=== PATIENT | male | born 1980 | race Caucasian/White ===

== ENCOUNTER 2023-02-06 06:33 | Outpatient (OUT) | payer BC, SELFPAY ==
[2023-02-06 07:42] LABS: Basophils Absolute Auto 0.1 10^3/uL (0.0-0.1); Eosinophils Absolute Auto 0.2 10^3/uL (0.0-0.7); Eosinophils Percent Auto 2.9 % (0.9-7.0); Hematocrit 43.9 % (42.0-54.0); Hemoglobin 15.2 g/dL (14.0-18.0); Immature Granulocytes Abs Auto 0.02 10^3/uL (0.00-0.03); Immature Granulocytes Pct Auto 0.3 % (0.0-0.5); Lymphocytes Absolute Auto 1.8 10^3/uL (1.2-3.8); Lymphocytes Percent Auto 26.6 % (20.5-60.0); Mean Corpuscular HGB Conc 34.6 g/dL (29.9-35.2); Mean Corpuscular Hemoglobin 32.6 pg (25.9-34.0); Mean Corpuscular Volume 94.2 fL (80.0-94.0); Mean Platelet Volume 9.2 fL (9.5-13.5); Monocytes Absolute Auto 0.6 10^3/uL (0.3-0.8); Monocytes Percent Auto 8.5 % (1.7-12.0); Neutrophils Absolute Auto 4.2 10^3/uL (1.4-6.5); Neutrophils Percent Auto 60.7 % (43.0-75.0); Platelet Count 217 10^3/uL (150-450); Red Blood Count 4.66 10^6/uL (4.70-6.10); Red Cell Distribution Width 12.8 % (11.0-15.0); White Blood Count 6.9 10^3/uL (4.0-11.0)
[2023-02-06 07:58] LABS: Estimated Average Glucose 103 mg/dL; Glycohemoglobin A1C 5.2 % (4.5-6.2)
[2023-02-06 08:11] LABS: Alanine Aminotransferase 37 U/L (16-63); Albumin Level 3.8 g/dL (3.4-5.0); Alkaline Phosphatase 73 U/L (46-116); Anion Gap 12.3; Aspartate Amino Transferase 18 U/L (15-37); BUN Creatinine Ratio 12.6; Bilirubin Total 0.4 mg/dL (0.2-1.0); Calcium 8.9 mg/dL (8.5-10.1); Carbon Dioxide 28.4 mmol/L (21.0-32.0); Chloride 100 mmol/L (98-107); Chol HDL Ratio 4.2; Cholesterol 139 mg/dL (<=200); Estimated GFR (African America >60 (>=60); Estimated GFR (Non-African Ame >60 (>=60); Free T3 2.67 pg/mL (2.18-3.98); Globulin 3.9 g/dL; Glucose 83 mg/dL (74-106); HDL Cholesterol 33 mg/dL (40-60); Potassium 3.7 mmol/L (3.5-5.1); Sodium 137 mmol/L (136-145); Thyroid Stimulating Hormone 1.111 uIU/mL (0.358-3.740); Total Protein 7.7 g/dL (6.4-8.2); Triglycerides 295 mg/dL (<=150); Uric Acid 6.7 mg/dL (3.5-7.2)
[2023-02-06 08:30] LABS: Prostate Specific Antigen Scrn 0.42 ng/mL (<=4.00)
== END 2023-02-06 06:34 | disposition home or self-care (01) ==
LOC: LAB 06:36
PROVIDERS: PCP Family Medicine; Visit Provider Family Medicine
DX: Z00.00 Encounter for general adult medical examination without abnormal findings (principal); Z12.5 Encounter for screening for malignant neoplasm of prostate
CPT/HCPCS: 36415; 80053; 80061; 83036; 83525; 84436; 84443; 84481; 84550; 85025; G0103

== ENCOUNTER 2024-02-15 14:03 | Outpatient (OUT) | payer BC, SELFPAY ==
[2024-02-15 14:51] LABS: Estimated Average Glucose 105 mg/dL; Glycohemoglobin A1C 5.3 % (4.5-6.2)
[2024-02-15 15:04] LABS: Alanine Aminotransferase 30 U/L (16-63); Albumin Globulin Ratio 0.9; Albumin Level 3.7 g/dL (3.4-5.0); Alkaline Phosphatase 77 U/L (46-116); Anion Gap 11.6; Aspartate Amino Transferase 20 U/L (15-37); Bilirubin Total 0.6 mg/dL (0.2-1.0); Calcium 8.9 mg/dL (8.5-10.1); Carbon Dioxide 29.2 mmol/L (21.0-32.0); Chloride 100 mmol/L (98-107); Cholesterol 128 mg/dL (<=200); Estimated GFR (African America >60 (>=60 mL/min/1.73m^2); Estimated GFR (Non-African Ame 56 (>=60 mL/min/1.73m^2); Free T3 2.61 pg/mL (2.18-3.98); Globulin 4.2 g/dL; Glucose 84 mg/dL (74-106); HDL Cholesterol 32 mg/dL (40-60); Potassium 3.8 mmol/L (3.5-5.1); Sodium 137 mmol/L (136-145); Thyroid Stimulating Hormone 1.085 uIU/mL (0.358-3.740); Total Protein 7.9 g/dL (6.4-8.2); Triglycerides 166 mg/dL (<=150); VLDL CHOLESTEROL 33.2 mg/dL
[2024-02-15 15:38] LABS: Basophils Absolute Auto 0.1 10^3/uL (0.0-0.1); Basophils Percent Auto 1.3 % (0.2-2.0); Eosinophils Absolute Auto 0.1 10^3/uL (0.0-0.7); Eosinophils Percent Auto 2.2 % (0.9-7.0); Hematocrit 44.7 % (42.0-54.0); Hemoglobin 15.3 g/dL (14.0-18.0); Immature Granulocytes Abs Auto 0.01 10^3/uL (0.00-0.03); Immature Granulocytes Pct Auto 0.2 % (0.0-0.5); Lymphocytes Absolute Auto 1.4 10^3/uL (1.2-3.8); Lymphocytes Percent Auto 24.9 % (20.5-60.0); Mean Corpuscular HGB Conc 34.2 g/dL (29.9-35.2); Mean Corpuscular Hemoglobin 32.4 pg (25.9-34.0); Mean Corpuscular Volume 94.7 fL (80.0-94.0); Mean Platelet Volume 9.3 fL (9.5-13.5); Monocytes Absolute Auto 0.6 10^3/uL (0.3-0.8); Monocytes Percent Auto 10.6 % (1.7-12.0); Neutrophils Absolute Auto 3.4 10^3/uL (1.4-6.5); Neutrophils Percent Auto 60.8 % (43.0-75.0); Platelet Count 203 10^3/uL (150-450); Red Blood Count 4.72 10^6/uL (4.70-6.10); Red Cell Distribution Width 12.3 % (11.0-15.0); White Blood Count 5.5 10^3/uL (4.0-11.0)
== END 2024-02-15 14:04 | disposition home or self-care (01) ==
LOC: LAB 14:08
PROVIDERS: PCP Family Medicine; Visit Provider Family Medicine
DX: Z00.00 Encounter for general adult medical examination without abnormal findings (principal); R53.83 Other fatigue; Z12.11 Encounter for screening for malignant neoplasm of colon
CPT/HCPCS: 36415; 80053; 80061; 83036; 84436; 84443; 84481; 85025; G0103

== ENCOUNTER 2025-02-19 13:53 | Outpatient (OUT) | payer BC, SELFPAY ==
--- OUTSIDE RECORDS SUMMARY | 2025-02-19 14:12 | XMS_ITS | CCD ---
Author Organization [facility] Care Team Providers Care Assembly Member Name Role Phone Elaine John Primary Care Provider ELAINE JOHN Primary Care Unavailable STEPHON DOMINGUEZ Attending Unavailable RODOLFO WARD Admitting Unavailable RODOLFO WARD Attending Unavailable STEPHON DOMINGUEZ Referring Unavailable ELAINE JOHN Primary Care Unavailable DR ELAINE JOHN Attending Unavailable GEMMA, DR HENRY Admitting Unavailable DR ELAINE JOHN Primary Care Unavailable DR ELAINE JOHN Consulting Unavailable DR ELAINE JOHN Attending Unavailable GEMMA, DR HENRY Admitting Unavailable DR ELAINE JOHN Primary Care Unavailable Medications Current Medications MedicationDrug Class(es)DatesSig (Normalized)Sig (Original)FLUoxetine 10 mg oral capsule (1 source)Serotonin Reuptake InhibitorStart: 28-14-5653vcyh 1 capsule by mouth once dailyFLUoxetine (PROZAC) 10 MG capsule Take 1 capsule by mouth daily 30 capsule 0 08/26/2019 ActiveStart: 96-16-0184vhzq 1 capsule by mouth once daily FLUoxetine (PROZAC) 10 MG capsule Take 1 capsule by mouth daily 30 capsule 0 08/26/2019 ActivehydrOXYzine hydrochloride 50 mg oral tablet (1 source)AntihistamineStart: 08-25-2019 End: 54-07-2072bjeh 1 tablet by mouth three times daily as needed for anxiety hydrOXYzine (ATARAX) 50 MG tablet Take 1 tablet by mouth 3 times daily as needed for Anxiety 45 tablet 0 08/25/2019 09/09/2019 Activemetoprolol tartrate 25 mg oral tablet (2 sources)beta-Adrenergic Blockertake 1 tablet by mouth twice dailymetoprolol tartrate (LOPRESSOR) 25 MG tablet Take 25 mg by mouth 2 times daily 0 Active Completed/Discontinued Medications MedicationDrug Class(es)DatesSig (Normalized)Sig (Original)LORazepam 1 mg oral tablet (1 source)BenzodiazepineStart: 08-17-2019 End: 62-43-1042UHBwccydl (ATIVAN) tablet 1 mg Problems Problem ClassificationProblemDateDocumented DateEpisodic/ChronicMood disorders (1 source)Severe recurrent major depression without psychotic features; Translations: [Severe episode of recurrent major depressive disorder, without psychotic features]Onset: [id number] screening for suspected conditions (not mental disorders or infectious disease) (1 source)Encounter for screening for malignant neoplasm of prostate; Translations: [ENC SCREEN MALIG NEOPLASM PROSTATE]Onset: 07-42-7963Ijbguise Suicide and intentional self-inflicted injury (2 sources)Suicidal thoughts; Translations: [Suicidal ideation]Episodic Results Test NameValueInterpretationReference RangeFacilityINSULINon 34-30-4089Sriwvwd 21.0 uIU/mLNormal2.6-24.9[facility] HospitalComment on above:Performed By: #### INSULIN #### [facility] [address] [place] [address] Dr. Cam Gómez AUTO DIFFon 47-73-0598KIHR #0.1 103/ulNormal0.0-0.1[facility] HospitalComment on above:Performed By: #### CBC #### [facility] [address] [place] [address] Dr. Cam Leessophils/100 WBC (Bld)1.0 %Normal0.2-2.0[facility] Comment on above:Performed By: #### CBC #### [facility] [address] [place] [address] Dr. Cam Ramírez #0.1 103/ulNormal0.0-0.7The [facility] SystemComment on above: Performed By: #### CBC #### [facility] [address] [place] [address] Dr. Cam Wilderosinophils/100 WBC (Bld)2.6 %Normal0.9-7.0[facility] Comment on above:Performed By: #### CBC #### [facility] [address] [place] [address] Dr. Yilan ChangErythrocyte distribution width (RBC) [Ratio]12.2 %Xviezp28.0-15.0 The [facility] SystemComment on above:Performed By: #### CBC #### [facility] [address] [place] [address] Dr. Cam KellerHematocrit (Bld) [Volume fraction]44.6 %Wynoic91.0-54.0The [facility] SystemComment on above:Performed By: #### CBC #### [facility] [address] [place] [address] Dr. Cam KellerHemoglobin (Bld) [Mass/Vol]14.9 g/zNHdhblc78.0-18.0The [facility] SystemComment on above:Performed By: #### CBC #### [facility] [address] [place] [address] Dr. Cam Hoover #0.01 10e3/ulNormal0.00-0.03The [facility] SystemComment on above:Performed By: #### CBC #### [facility] [address] [place] [address] Dr. Cam oHover %0.2 %Normal0.0-0.5The [facility] SystemComharper university hospital on above: Performed By: #### CBC #### [facility] [address] [place] [address] Dr. Cam SheldonH #1.4 103/ulNormal1.2-3.8The [facility] SystemComment on above:Performed By: #### CBC #### [facility] [address] [place] [address] Dr. Cam Rodriguezmphocytes/100 WBC (Bld)27.1 %Sjwgsn28.5-60.0The [facility] SystemComment on above:Performed By: #### CBC #### [facility] [address] [place] [address] Dr. Cam KingUAL DIFF REQNONormalThe [facility] SystemComment on above: Performed By: #### CBC #### [facility] [address] [place] [address] Dr. Cam Jones (RBC) [Entitic mass]30.9 ieGrfcfp70.9-34.0The [facility] SystemComment on above:Performed By: #### CBC #### [facility] [address] [place] [address] Dr. Cam Jones (RBC) [Mass/Vol]33.4 g/kAYyafzr88.9-35.2The [facility] SystemComment on above:Performed By: #### CBC #### [facility] [address] [place] [address] Dr. Cam Jones (RBC) [Entitic vol]92.5 lSAelssw85.0-94.0The [facility] SystemComment on above:Performed By: #### CBC #### [facility] [address] [place] [address] Dr. Cam Clifford #0.5 103/ulNormal0.3-0.8The [facility] SystemComment on above:Performed By: #### CBC #### [facility] [address] [place] [address] Dr. Cam Simpsonocytes/100 WBC (Bld)9.8 %Normal1.7-12.0[facility] Comment on above:Performed By: #### CBC #### [facility] [address] [place] [address] Dr. Cam RamírezUT #3.0 103/ulNormal1.4-6.5The [facility] SystemComment on above:Performed By: #### CBC #### [facility] [address] [place] [address] Dr. Cam Ramírezutrophils/100 WBC (Bld)59.3 %Duhhrf98.0-75.0The [facility] SystemComment on above:Performed By: #### CBC #### [facility] [address] [place] [address] Dr. Cam Villaseñorlet mean volume (Bld) [Entitic vol]8.9 fLCritically low 9.5-13.5The [facility] SystemComment on above:Performed By: #### CBC #### [facility] [address] [address] [address] Cam KellrePLT224 103/lhGzuagl162-615Ura [facility] on above: Performed By: #### CBC #### [facility] [address] [address] [address] Cam KellerRBC4.82 106/ulNormal4.70-6.10ThSelect Medical Specialty Hospital - [facility], IncComharper university hospital on above:Performed By: #### CBC #### [facility] [address] [address] [address] Cam KellerWBC5.0 103/ulNormal4.0-11.0The [facility] SystemComment on above: Performed By: #### CBC #### [facility] [address] [place] [address] Dr. Cam KellerFRALAN THYROXINE INDEX T7on 52-27-1496YWP6.35Wrjiro5.30-4.50[facility] HospitalComharper university hospital on above:Performed By: #### T7 #### [facility] [address] [place] [address] Dr. Cam KellerT3U33.0 %Sjcvls89.0-40.0[facility] on above: Performed By: #### T7 #### [facility] [address] [place] [address] Dr. Cam KellerT4 [Mass/Vol]6.20 ug/dLNormal4.50-12.10ThSelect Medical Specialty Hospital [facility], Inc Comment on above:Performed By: #### T7 #### [facility] [address] [place] [address] Dr. Cam KellerGLYCOHEMOGLOBIN A1Con 59-49-2263RBO RECOMMENDATIONSEE BELOWNormCleveland Clinic [facility] General Lodi HospitalComharper university hospital on above:Result Comment: ADA RECOMMENDED LIMIT 4.0 - 6.0 ADA THERAPEUTIC TARGET < 7.0 ACTION SUGGESTED > 7.0Performed By: #### A1C #### [facility] [address] [place] [address] Dr. Cam KellerGlucose [Mass/Vol]105 mg/[facility] on above:Performed By: #### A1C #### [facility] [address] [address] [address] Cam KellerHbA1c (Bld) [Mass fraction]5.3 %Normal4.5-6.2[facility] on above:Performed By: #### A1C #### [facility] [address] [place] [address] Dr. Cam KellerLIPID PROFILEon 34-30-1790IOZE-HDL RATIO NORMSEE [facility] on above:Result Comment: 3.3 - 4.4 LOW RISK 4.4 - 7.1 AVERAGE RISK 7.1 - 11.0 MODERATE RISK >11.0 HIGH RISKPerformed By: #### URIC, T4, CMP, TSH, LIPID #### [facility] [address] [place] [address] Dr. Cam Fonsecaesterol [Mass/Vol]247 mg/dLCritically high<=200The [facility] on above:Performed By: #### URIC, T4, CMP, TSH, LIPID #### [facility] [address] [place] [address] Dr. Cam Fonsecaesterol in HDL [Mass/Vol]32 mg/dLCritically hqu51-71Iru [facility] on above:Performed By: #### URIC, T4, CMP, TSH, LIPID #### [facility] [address] [place] [address] Dr. Cam Fonsecaesterol in LDL [Mass/Vol]142.2 mg/dLOhioHealth Dublin Methodist Hospital on above:Performed By: #### URIC, T4, CMP, TSH, LIPID #### [facility] [address] [place] [address] Dr. Cam Gonzalez.total/Cholesterol in HDL [Mass ratio]7.7 {ratio} NormalWayne Hospital on above:Performed By: #### URIC, T4, CMP, TSH, LIPID #### [facility] [address] [place] [address] Dr. Yilan ChangHDL NORMAL> or = 60 mg/dl - LOW CARDIOVASCULAR RISK <40 mg/dl - HIGH CARDIOVASCULAR RISKMcKitrick Hospitalment on above:Performed By: #### URIC, T4, CMP, TSH, LIPID #### [facility] [address] [place] [address] Dr. Cam Vang CALC NORMALSEE BELOWProtestant Deaconess HospitalComment on above:Result Comment: <100 mg/dl OPTIMAL 100 - 129 mg/dl NEAR OR ABOVE OPTIMAL 130 - 159 mg/dl BORDERLINE HIGH 160 - 189 mg/dl HIGH >190 mg/dl VERY HIGH Performed By: #### URIC, T4, CMP, TSH, LIPID #### [facility] [address] [place] [address] Dr. Cam KellerTriglyceride [Mass/Vol]364 mg/dLCritically high<=150The [facility] on above:Performed By: #### URIC, T4, CMP, TSH, LIPID #### [facility] [address] [place] [address] Dr. Cam KellerVLDL CALC72.8 mg/dLNoOur Lady of Mercy Hospital - AndersonComharper university hospital on above: Performed By: #### URIC, T4, CMP, TSH, LIPID #### [facility] [address] [place] [address] Dr. Cam Dietrich BLD IMMUNO SCREENon 36-51-4082IQDFHB BLOODNegativeNormal NEGATIVEThe [facility] on above:Performed By: #### A1C #### [facility] [address] [place] [address] Dr. Cam KellerPROF 14(COMP METB)on 46-60-4857Bpdtymp [Mass/Vol]3.8 g/dLNormal 3.4-5.0The [facility] on above:Performed By: #### URIC, T4, CMP, TSH, LIPID #### [facility] [address] [place] [address] Dr. Cam KellerAlbumin/Globulin [Mass ratio]0.9 {ratio}NormalThe [facility] SystemComharper university hospital on above:Performed By: #### URIC, T4, CMP, TSH, LIPID #### [facility] [address] [place] [address] Dr. Cam Hatfield [Catalytic activity/Vol]68 U/LIupoiz15-356Jir Highland District Hospitalment on above:Performed By: #### URIC, T4, CMP, TSH, LIPID #### [facility] [address] [place] [address] Dr. Cam Childers [Catalytic activity/Vol]37 U/VOxajrk21-17Ead [facility] SystemComment on above:Performed By: #### URIC, T4, CMP, TSH, LIPID #### [facility] [address] [place] [address] Dr. Cam Treviño gap [Moles/Vol]11.0 mmol/LNormalThe [facility] Comment on above:Performed By: #### URIC, T4, CMP, TSH, LIPID #### [facility] [address] [place] [address] Dr. Cam Freeman [Catalytic activity/Vol]21 U/OCxfryf91-18Gml [facility] SystemComment on above:Performed By: #### URIC, T4, CMP, TSH, LIPID #### [facility] [address] [place] [address] Dr. Cam KellerBilirubin [Mass/Vol]0.3 mg/dLNormal0.2-1.0[facility] Comment on above:Performed By: #### URIC, T4, CMP, TSH, LIPID #### [facility] [address] [place] [address] Dr. Cam KellerCalcium [Mass/Vol]9.2 mg/dLNormal8.5-10.1[facility] Comment on above:Performed By: #### URIC, T4, CMP, TSH, LIPID #### [facility] [address] [place] [address] Dr. Cam KellerChloride [Moles/Vol]101 mmol/PBhbcvv77-235VstMorrow County Hospital Comment on above:Performed By: #### URIC, T4, CMP, TSH, LIPID #### [facility] [address] [place] [address] Dr. Yilan ChangCO2 [Moles/Vol]28.5 mmol/RFwcxen38.0-32.0The [facility] Comment on above:Performed By: #### URIC, T4, CMP, TSH, LIPID #### [facility] [address] [address] [address] Cam KellerCreatinine [Mass/Vol]1.15 mg/dLNormal0.70-1.30The [facility] SystemComment on above:Performed By: #### URIC, T4, CMP, TSH, LIPID #### [facility] [address] [address] [address] Cam WilderGFR-AF MALDIVIAN>60Normal>=60The [facility] SystemComment on above:Performed By: #### URIC, T4, CMP, TSH, LIPID #### [facility] [address] [place] [address] Dr. Cam WilderGFR-NON AF MALDIVIAN>60Normal>=60The [facility] SystemComment on above:Performed By: #### URIC, T4, CMP, TSH, LIPID #### [facility] [address] [place] [address] Dr. Cam KellerGlobulin (S) [Mass/Vol]4.3 g/dLNormalThe [facility] SystemComment on above:Performed By: #### URIC, T4, CMP, TSH, LIPID #### [facility] [address] [place] [address] Dr. Cam KellerGlucose [Mass/Vol]91 mg/jIUcwhnt62-804Qvs [facility] Comment on above:Performed By: #### URIC, T4, CMP, TSH, LIPID #### [facility] [address] [place] [address] Dr. Cam KellerPotassium [Moles/Vol]4.5 mmol/LNormal3.5-5.1The [facility] Comment on above:Performed By: #### URIC, T4, CMP, TSH, LIPID #### [facility] [address] [place] [address] Dr. Cam KellerProtein [Mass/Vol]8.1 g/dLNormal6.4-8.2The [facility] Comment on above:Performed By: #### URIC, T4, CMP, TSH, LIPID #### [facility] [address] [place] [address] Dr. Cam Stringerdium [Moles/Vol]136 mmol/EOkllzi545-031Fam [facility] Comment on above:Performed By: #### URIC, T4, CMP, TSH, LIPID #### [facility] [address] [place] [address] Dr. Cam KellerUrea nitrogen [Mass/Vol]16.0 mg/dLNormal7.0-18.0The [facility] SystemComment on above:Performed By: #### URIC, T4, CMP, TSH, LIPID #### [facility] [address] [place] [address] Dr. Cam Garcia nitrogen/Creatinine [Mass ratio]13.9 mg/mgNormalThe [facility] SystemComment on above:Performed By: #### URIC, T4, CMP, TSH, LIPID #### [facility] [address] [place] [address] Dr. Cam KellerT4on 69-49-9238I1 [Mass/Vol]5.30 ug/dLNormal4.50-12.10The [facility] SystemComment on above:Performed By: #### URIC, T4, CMP, TSH, LIPID #### [facility] [address] [place] [address] Dr. Cam Lopez 29-22-7976NJK6.897 uIU/mLNormal0.358-3.740The [facility] SystemComment on above:Performed By: #### URIC, T4, CMP, TSH, LIPID #### [facility] [address] [place] [address] Dr. Cam Yun ACID SERUMon 05-44-3960Hckqa [Mass/Vol]5.2 mg/dLNormal 3.5-7.2The [facility] SystemComment on above:Performed By: #### URIC, T4, CMP, TSH, LIPID #### [facility] [address] [place] [address] Dr. Levy ChangEKG 12 Leadon 59-93-8493Ylhjvf Nehz81IFNVzhcg Health- [place], [place] Eftj11blgmrdvKyayo Health- [place], [place]-R Uqcupwtm632 msMercy Health- [place], KYQ-T Xsidwvwh574 msMercy Health- [place], KYQRS Wxbeqode40 msMercy Health- [place], KYQTc Calculation (Joanie)389 msMercy Health- [place], [place] Mulvane-3degreesMercy Health- [place], KYT Rvfb52njvfmaaFtsvf Health- [place], KYVentricular Dksx29VREPjruf Health- [place], [place] Normal sinus rhythm Normal ECG When compared with ECG of 22-JUN-2011 22:17, No significant change was found Confirmed by STANISLAV CHERRY ([id number]) on 08/18/2019 1:43:47 PMMercy Health- [place], KYEdi, Mhpn Incoming Ekg Results From [facility] [place] - 08/18/2019 1:43 PM EDT Normal sinus rhythm Normal ECG When compared with ECG of 22-JUN-2011 22:17, No significant change was found Confirmed by STANISLAV CHERRY ([id number]) on 08/18/2019 1:43:47 PMMer Health- [place], KYAcetaminophenon 19-56-1201Qfuoapmdbqpvs [Mass/Vol]<9Eyf33-37Kxjlo [facility]iffin HospitalComment on above:Performed By: #### ALCB, ACET #### [address] [place] [address] Accounts Manager: Jose L Gold [facility] with Diffon 71-64-4490Uky. Basophil0.05 k/uL Normal0.00-0.20MerUniversity Hospitals Samaritan Medical Center HospitalComment on above:Performed By: #### CDP, CP, SALI #### [address] [place] [address] Accounts Manager: Jose L Gold [facility].Imm.Granulocyte<0.96Orzkub7.00-0.30MerUniversity Hospitals Samaritan Medical Center HospitalComment on above:Performed By: #### CDP, CP, SALI #### [address] [place] [address] Accounts Manager: Paola Mcdermott.Neutrophil (Seg)3.56 k/uLNormal1.50-8.10[facility] HospitalComment on above:Performed By: #### CLEMENT MORGAN, SALI #### [address], [place] [address] Accounts Manager: Jose L Gold MDBasophils/100 WBC (Bld)1 %Normal0-2[facility] [place] HospitalComment on above:Performed By: #### CATHY CP, SALI #### [address] [place] [address] Accounts Manager: Jose L Gold MDEosinophils (Bld) [#/Vol]0.10 10*3/uLNormal 0.00-0.44[facility] HospitalComment on above:Performed By: #### CLEMENT MORGAN, SALI #### [address], [place] [address] Accounts Manager: QIANA Mcdermottosinophils/100 WBC (Bld)2 %Normal1-4[facility] HospitalComment on above:Performed By: #### CLEMENT MORGAN, SALI #### [address] [place] [address] Accounts Manager: Jose L Gold MDErythrocyte distribution width (RBC) [Ratio]12.3 %Heejcc23.8-14.4[facility] HospitalComment on above:Performed By: #### CATHY CP, SALI #### [address] [place] [address] Accounts Manager: Jose L Gold MDHematocrit (Bld) [Volume fraction]43.4 %Normal 40.7-50.3[facility] [place] HospitalComment on above:Performed By: #### CATHY CP, SALI #### [address], [place] [address] Accounts Manager: Jose L Gold MDHemoglobin (Bld) [Mass/Vol]14.9 g/dLNormal 13.0-17.0[facility] NorthComment on above:Performed By: #### CLEMENT MORGAN, SALI #### [address], [place] [id number] Accounts Manager: Jose L Gold MDImmature granulocytes (Bld) [#/Vol]0 %Normal0 [facility] NorthComment on above:Performed By: #### CLEMENT MORGAN, SALI #### [address] [place] [address] Accounts Manager: Anne-Marie Mcdermottmphocytes (Bld) [#/Vol]1.35 10*3/uLNormal 1.10-3.70[facility] NorthComment on above:Performed By: #### CLEMENT MORGAN, SALI #### [address], [facility]83 Accounts Manager: Anne-Marie Mcdermottmphocytes/100 WBC (Bld)23 %Dyw09-32KvorxSelect Medical Specialty Hospital - [facility] NorthComment on above:Performed By: #### CLEMENT MORGAN, SALI #### [address] [place] [address] Accounts Manager: ALEX Mcdermott (RBC) [Entitic mass]31.5 wpTkorhd97.2-33.5 [facility] HospitalComment on above:Performed By: #### CATHY CP, SALI #### [address] [place] [address] Accounts Manager: ALEX McdermottC (RBC) [Mass/Vol]34.3 g/mKOaykgl82.4-34.8 [facility] HospitalComment on above:Performed By: #### CATHY CP, SALI #### [address] [place] [address] Accounts Manager: BISI McdermottCV (RBC) [Entitic vol]91.8 hFYpmznq85.6-102.9 [facility] HospitalComment on above:Performed By: #### CLEMENT MORGAN, SALI #### [address], [facility] Accounts Manager: BISI Mcdermottonocytes (Bld) [#/Vol]0.71 10*3/uLNormal 0.10-1.20[facility] HospitalComment on above:Performed By: #### CATHY CP, SALI #### [address], [place] [address] Accounts Manager: BISI Mcdermottonocytes/100 WBC (Bld)12 %Normal3-12[facility] HospitalComment on above:Performed By: #### CLEMENT MORGAN, SALI #### [address], [place] [address] Accounts Manager: Birgit Mcdermottutrophil (Seg)62 %Lgzcen19-20[facility]iffin HospitalComment on above:Performed By: #### CLEMENT MORGAN, SALI #### [address], [place] [address] Accounts Manager: Jose L Gold MDNRBC Automated0.0 per 100 WBCNormal0.0[facility] HospitalComment on above:Performed By: #### CLEMENT MORGAN, SALI #### [address], [facility]83 Accounts Manager: THEE Mcdermottlatelet mean volume (Bld) [Entitic vol]8.9 fL Normal8.1-13.5MerUniversity Hospitals Samaritan Medical Center HospitalComment on above:Performed By: #### CATHY CP, SALI #### [address], [facility]87 [address] Accounts Manager: THEE Mcdermottlatelets (Bld) [#/Vol]197 10*3/oSOjlueu482-118 [facility] HospitalComment on above:Performed By: #### CDP, CP, SALI #### [facility] [address] [place] [address] Accounts Manager: MARTHA Mcdermott (Bld) [#/Vol]4.73 10*6/uLNormal4.21-5.77[facility] HospitalComment on above:Performed By: #### CDP, CP, SALI #### [address] [place] [address] Accounts Manager: PRO Mcdermott (Bld) [#/Vol]5.8 10*3/uLNormal3.5-11.3MOhioHealth Doctors Hospital HospitalComment on above:Performed By: #### CATHY, CP, SALI #### [address] [place] [address] Accounts Manager: James Mcdermott PerformedNOT REPORTEDNormalSelect Medical Specialty Hospital - [facility] NorthComment on above:Performed By: #### CATHY, CP, SALI #### [address] [place] [address] Accounts Manager: Tricia Mcdermott (Bld) [#/Vol]NOT REPORTEDCleveland Clinic [facility]- [place], KYComment on above:Performed By: #### CDP, CP, SALI #### [address] [place] [address] Accounts Manager: MARTHA Mcdermott morphology finding Nom (Bld)NOT REPORTEDCleveland Clinic [facility]- [place], KYComment on above:Performed By: #### CDP, CP, SALI #### [address] [place] [address] Accounts Manager: PRO Mcdermott MorphologyNOT REPORTEDCleveland Clinic [facility]- [place], [place] Comment on above:Performed By: #### CDP, CP, SALI #### [address], [place] [id number] Accounts Manager: YOMAIRA Mcdermottlone peak hospital Metabolic Profon 08-17-2019(cont.)Normal [facility] NorthComment on above:Result Comment: Average GFR for 40-49 years old: 99 mL/min/1.73sq m Chronic Kidney Disease: <60 mL/min/1.73sq m Kidney failure: <15 mL/min/1.73sq m eGFR calculated using average adult body mass. Additional eGFR calculator available at: http://www.[employer]/multiple_crcl_2012.htmPerformed By: #### CLEMENT MORGAN, SALI #### [address], [place] [id number] Accounts Manager: Jose L Gold MDAlbumin [Mass/Vol]4.3 g/dLNormal3.5-5.2MOhioHealth Doctors Hospital HospitalComment on above:Performed By: #### CLEMENT MORGAN, SALI #### [address] [place] [address] Accounts Manager: Jose L Gold MDAlbumin/Globulin [Mass ratio]1.3 {ratio}Normal 1.0-2.5[facility] NorthComment on above:Performed By: #### CLEMENT MORGAN, SALI #### [address] [place] [address] Accounts Manager: Patricia Mcdermottline Phos54 U/MAxucdt60-433OttapSelect Medical Specialty Hospital - Cincinnati NorthComment on above:Performed By: #### CLEMENT MORGAN, SALI #### [address], [place] 0[address]83 Accounts Manager: Jose L Gold MDALT [Catalytic activity/Vol]15 U/LNormal5-41[facility] NorthComment on above:Performed By: #### CLEMENT MORGAN, SALI #### [address], [facility]21 [phone] Accounts Manager: Jose L Gold MDAnion gap [Moles/Vol]13 mmol/LNormal9-17[facility] HospitalComment on above:Performed By: #### CLEMENT MORGAN, SALI #### [address] [place] [address] Accounts Manager: Jose L Gold MDAST [Catalytic activity/Vol]18 U/LNormal<40MerUniversity Hospitals Samaritan Medical Center HospitalComment on above:Performed By: #### CATHY CP, SALI #### [facility] [address], [facility]83 Accounts Manager: Jose L Gold MDBilirubin Ql (U)0.27 mg/dLLow0.3-1.2[facility] Newton HospitalComment on above:Performed By: #### CLEMENT MORGAN, SALI #### [address], [place] [address] Accounts Manager: Jose L Gold MDBUN/CRE Mozki27Ezpnyk4-63Ogajc [facility] Comment on above:Performed By: #### CLEMENT MORGAN, SALI #### [address] [place] [address] Accounts Manager: Jose L Gold MDCalcium [Mass/Vol]9.8 mg/dLNormal8.6-10.4[facility] NorthComment on above:Performed By: #### CLEMENT MORGAN, SALI #### [address] [place] [address] Accounts Manager: Jose L Gold, MDChloride [Moles/Vol]99 mmol/KGqwxal68-909Yyhez [facility]iffin HospitalComment on above:Performed By: #### CLEMENT MORGAN, SALI #### [address] [place] [address] Accounts Manager: Jose L Gold MDCO2 [Moles/Vol]25 mmol/ORumsah09-32Qthmw [facility] HospitalComment on above:Performed By: #### CATHY CP, SALI #### [address], [place] 2075183 Accounts Manager: YOMAIRA Mcdermottreatinine [Mass/Vol]1.16 mg/dLNormal0.70-1.20 [facility] HospitalComment on above:Performed By: #### CATHY CP, SALI #### [address], [place] 7238283 Accounts Manager: Jose L Gold MDGFR, Amer>60Normal>60[facility] Comment on above:Performed By: #### CLEMENT MORGAN, SALI #### [address], [place] 377[address]83 Accounts Manager: JAMIE Mcdermott,non Amer>60Normal>60[facility] Newton HospitalComment on above:Performed By: #### CLEMENT MORGAN, SALI #### [address] [place] [address] Accounts Manager: Jose L Gold MDGlucose [Mass/Vol]109 mg/tVRhna53-10Ioqpe Newton HospitalComment on above:Performed By: #### CATHY CP, SALI #### [address], [place] 6124783 Accounts Manager: THEE Mcdermottotassium [Moles/Vol]4.1 mmol/LNormal3.7-5.3[facility] Newton HospitalComment on above:Performed By: #### CATHY CP, SALI #### [address], [place] 2695183 Accounts Manager: Jose L Gold MDProtein [Mass/Vol]7.6 g/dLNormal6.4-8.3[facility] Newton HospitalComment on above:Performed By: #### CATHY CP, SALI #### [address], [place] [address] Accounts Manager: AIXA Mcdermottodium [Moles/Vol]137 mmol/FEawrbx429-485Akkmu [facility] HospitalComment on above:Performed By: #### CLEMENT MORGAN, SALI #### [facility] [address], [facility]83 Accounts Manager: AIXA Mcdermotttaging:NormalTrihealth HospitalComment on above:Result Comment: Stage 1: Some kidney damage normal GFR Stage 2: Mild kidney damage GFR 60-89 Stage 3: Moderate kidney damage GFR 30-59 Stage 4: Severe kidney damage GFR 15-29 Stage 5: Severe kidney damage GFR <15 ESRD - chronic treatment by dialysis or transplantPerformed By: #### CLEMENT MORGAN, SALI #### [address], [facility]83 Accounts Manager: Jose L Gold MDUrea nitrogen [Mass/Vol]17 mg/dLNormal6-20[facility] HospitalComment on above:Performed By: #### CLEMENT MORGAN, SALI #### [facility] [address], [facility]83 Accounts Manager: ANGEL Mcdermottrugon 67-84-2633Doxgayy [Mass/Vol]mg/dL<10 mg/dL [facility]- [place], KYDrug Scr, Abuse, Uron 63-51-8959Jghugwpxinl(s),UrNegative NormalNEGTrihealth HospitalComment on above:Performed By: #### MAKENZIE #### [facility] [address], [facility]83 Accounts Manager: Jose L Gold MDBarbiturate(s),UrNegativeNormalNEGTrihealth HospitalComment on above:Performed By: #### MAKENZIE #### [facility] [address] [place] [phone] Accounts Manager: Jose L Gold MDBase excess Calc (Bld) [Moles/Vol]NegativeNormal NEGTrihealth HospitalComment on above:Performed By: #### MAKENZIE #### [address], [facility]83 Accounts Manager: Jose L Gold MDBenzodiazepine(s)NegativeNormalNEGMercy Newton HospitalComment on above:Performed By: #### MAKENZIE #### [address], [facility]83 Accounts Manager: Jose L Gold MDBuprenorphrine, UrNegativeNormalNEGMercy Newton HospitalComment on above:Performed By: #### MAKENZIE #### [address], [facility]83 Accounts Manager: YOMAIRA Mcdermottannabinoid(s),UrNegativeNormalNEGMercy Newton HospitalComment on above:Performed By: #### MAKENZIE #### [address], [facility]83 Accounts Manager: BISI Mcdermottethadone Ql (U)NegativeNormalNEGMercy Newton HospitalComment on above:Performed By: #### MAKENZIE #### [address], [facility]83 Accounts Manager: BISI Mcdermottethamphetamine, UrNegativeNormalNEGMercy Newton HospitalComment on above:Performed By: #### MAKENZIE #### [address], [facility]83 Accounts Manager: Jose L Gold MDOpiate(s), UrNegativeNormalNEGMercy Newton HospitalComment on above:Performed By: #### MAKENZIE #### [address], [facility]83 Accounts Manager: Jose L Gold MDOxycodone, UrineNegativeNormalNEGMercy Newton HospitalComment on above:Performed By: #### MAKENZIE #### [facility] [address] [place] [address], [place] 2561583 Accounts Manager: THEE Mcdermotthencyclidine, UrNegativeNormalNEGMercy Newton HospitalComment on above:Performed By: #### MAKENZIE #### [address], [place] 78[address]83 Accounts Manager: THEE Mcdermottropoxyphene,UrineNegativeNormalNEGMercy Newton HospitalComment on above:Performed By: #### MAKENZIE #### [address], [place] 2773883 Accounts Manager: Jose L Gold MDTricyclic antidepressants Screen Ql (U)Negative NormalNEGSelect Medical Specialty Hospital - Cincinnati NorthComharper university hospital on above:Result Comment: Drug screen results are to be used for medical purposes only. All positive results are unconfirmed. Testing for employment or legal uses should be sent to a reference laboratory for confirmation.Performed By: #### MAKENZIE #### [address], [place] 2424583 Accounts Manager: Jose L Gold MDInterpretive InfoNOT REPORTEDNormalMercy The Hospital Of Central ConnecticutComment on above:Performed By: #### MAKENZIE #### [address], [place] 4537783 Accounts Manager: Jose L Gold MDMDMA, UrineNOT REPORTEDNormalNEGRegency Hospital Toledocy Newton HospitalComment on above:Performed By: #### MAKENZIE #### [address], [place] 9278683 Accounts Manager: Jose L Gold MDEthanol Alcoholon 14-04-3998Zjoysyk [Mass/Vol] mg/dLNormal<10Mer[facility] Newton HospitalComment on above:Performed By: #### ALCB, ACET #### [address], [place] 3505383 Accounts Manager: Jose L Gold MDEthanol percent<0.010Normal<0.010Mer[facility] Newton HospitalComment on above:Performed By: #### ALCB, ACET #### [facility] [address] [place] [address] Accounts Manager: Jose L Gold MDHematologyon 89-60-8305Ivgwyfzot (Bld) [#/Vol] 0.05 10*3/uLUniversity [facility]als [facility] [place], KYBasophils/100 WBC (Bld)1 %0 - 2 %[facility], KYEosinophils (Bld) [#/Vol]0.10 10*3/[facility] [place], KYEosinophils/100 WBC (Bld)2 %1 - 4 %[facility] [place], KYHematocrit (Bld) [Volume fraction]43.4 % 40.7 - 50.3 %[facility], KYHemoglobin (Bld) [Mass/Vol]14.9 g/dL13 - 17 g/dLHolzer Hospital, KYLymphocytes (Bld) [#/Vol]1.35 10*3/[facility] [place], KYLymphocytes/100 WBC (Bld)23 %Low24 - 43 %[facility], KYMCH (RBC) [Entitic mass]31.5 pg25.2 - 33.5 pgHolzer Hospital, KYMCV (RBC) [Entitic vol] 91.8 fL82.6 - 102.9 fLHolzer Hospital, KYMonocytes (Bld) [#/Vol]0.71 10*3/uL [facility], KYMonocytes/100 WBC (Bld)12 %3 - 12 %[facility], [place] Platelets (Bld) [#/Vol]197 10*3/[facility], KYRBC (Bld) [#/Vol]4.73 10*6/uL4.21 - 5.77 m/[facility], KYWBC (Bld) [#/Vol]5.8 10*3/[facility] [place], KYWBC (Bld) [#/Vol]0.0 10*3/uL0.0 per 100 WBCHolzer Hospital, [place] Metabolic Panelon 29-83-5167Brupwkb [Mass/Vol]4.3 g/dL3.5 - 5.2 g/dLHolzer Hospital, KYALP [Catalytic activity/Vol]54 U/L40 - 129 U/[facility], [place] ALT [Catalytic activity/Vol]15 U/L5 - 41 U/[facility], KYAnion gap [Moles/Vol]13 mmol/L9 - 17 mmol/[facility], KYAST [Catalytic activity/Vol]18 U/L<40[facility], KYCalcium [Mass/Vol]9.8 mg/dL8.6 - 10.4 mg/dLHolzer Hospital, KYChloride [Moles/Vol]99 mmol/L98 - 107 mmol/[facility], KYCO2 [Moles/Vol]25 mmol/L20 - 31 mmol/[facility], [place] Creatinine [Mass/Vol]1.16 mg/dL0.7 - 1.2 mg/dLHolzer Hospital, KYGFR/1.73 sq M predicted among non-blacks MDRD (S/P/Bld) [Vol rate/Area][facility], [place] Comment on above:Stage 1: Some kidney damage normal GFR Stage 2: Mild kidney damage GFR 60-89 Stage 3: Moderate kidney damage GFR 30-59 Stage 4: Severe kidney damage GFR 15-29 Stage 5: Severe kidney damage GFR <15 ESRD - chronic treatment by dialysis or transplant Average GFR for 40-49 years old: 99 mL/min/1.73sq m Chronic Kidney Disease: <60 mL/min/1.73sq m Kidney failure: <15 mL/min/1.73sq m eGFR calculated using average adult body mass. Additional eGFR calculator available at: http://www.[employer]/multiple_crcl_2012.htm Glucose [Mass/Vol]109 mg/fXFfke43 - 99 mg/dLHolzer Hospital, AKPotassium [Moles/Vol]4.1 mmol/L3.7 - 5.3 mmol/[facility], KYProtein [Mass/Vol]7.6 g/dL6.4 - 8.3 g/dLMercy Health- [place], KYSodium [Moles/Vol]137 mmol/L135 - 144 mmol/LMercy Health- [place], KYUrea nitrogen [Mass/Vol]17 mg/dL6 - 20 mg/dLMercy Health- [place], KYOtheron 26-54-2884Tigqiqgajnx Screen, UrNegativeNEGATIVEMercy Health- [place], KYBarbiturate Screen, UrNegativeNEGATIVEMercy Health- [place], [place] Benzodiazepine Screen, UrineNegativeNEGATIVEMercy Health- [place], KYBuprenorphine UrineNegativeNEGATIVEMercy Health- [place], KYCannabinoid Scrn, UrNegativeNEGATIVE [facility]- [place], KYCocaine Metabolite, UrineNegativeNEGATIVEMercy Health- [place], KYMDMA, UrineNOT REPORTEDNEGATIVEMercy Health- [place], KYMethadone Screen, Urine NegativeNEGATIVEMercy Health- [place], KYMethamphetamine, UrineNegativeNEGATIVEMercy Health- [place], KYOpiates, UrineNegativeNEGATIVEMercy Health- [place], KYOxycodone Screen, UrNegativeNEGATIVEMercy Health- [place], KYPhencyclidine, UrineNegative NEGATIVEMercy Health- [place], KYPropoxyphene, UrineNegativeNEGATIVEMercy Health- [place], KYTest InformationNOT REPORTEDMercy Health- [place], KYTricyclic Antidepressants, UrineNegativeNEGATIVEMercy Health- [place], KYComment on above:Drug screen results are to be used for medical purposes only. All positive results are unconfirmed. Testing for employment or legal uses should be sent to a reference laboratory for confirmation. Acetaminophen [Mass/Vol]<5Low10 - 30 ug/mLMercy Health- [place], KYInterpretation and review of laboratory resultsAbnormalMercy Health- [place], KYAlbumin/Globulin [Mass ratio]1.3 {ratio}[facility]- [place], KYBilirubin Ql (U)0.27 mg/dLLow0.3 - 1.2 mg/dLMercy Health- [place], KYBun/Cre Cjccf45Vfomt Health- [place], KYGFR >60>60 mL/minMercy Health- [place], KYGFR Non->60>60 mL/minMercy Health- [place], KYInterpretation and review of laboratory resultsAbnormalMercy Health- [place], KYSalicylate Lvl<1Low3 - 10 mg/dLCleveland Clinic [facility]- [place], KYEthanol percent <0.010<0.010 %[facility], KYDifferential TypeNOT REPORTEDUniversity Hospitals [facility] [place], KYErythrocyte distribution width (RBC) [Ratio]12.3 %11.8 - 14.4 %[facility] [place], KYImmature granulocytes (Bld) [#/Vol]0 %0[facility]- [place], KYImmature granulocytes (Bld) [#/Vol]10*3/uLUniversity Hospitals [facility] [place], KYInterpretation and review of laboratory resultsAbnormalUniversity Hospitals [facility]ma [facility] [place], KYMCHC (RBC) [Mass/Vol]34.3 g/dL 28.4 - 34.8 g/dLUniversity Hospitals Parma [facility] Center [place], KYPlatelet mean volume (Bld) [Entitic vol]8.9 fL8.1 - 13.5 fLHolzer Hospital, KYSegmented neutrophils/100 WBC (Bld)62 %36 - 65 %[facility], KYSegs Absolute3.56[facility] [place], KYSalicylateon 87-94-2567Cgkmcupicq<9Fcv7-33CdejdSelect Medical Specialty Hospital - Cincinnati NorthComment on above:Performed By: #### CATHY, CP, SALI #### [facility] [address] [place] [address] Accounts Manager: Jose L Gold MD Vital Signs Date TimeVital SignValuePerforming ClxjlhnttYmrgnmah31-84-6658 08:29-0400BP Kmbavowia09 mm[Hg][facility], RV81-69-8989 08:29-0400BP Dkjejqld934 mm[Hg][facility], LZ12-78-4039 08:29-0400Pulse (Heart Rate)71 /minDouglbee [facility], JJ41-02-6765 08:00-0400Body Xtelfqpvukv80.2 [degF][facility], DL07-29-2360 08:00-0400Pulse Plpyyhcs62 %[facility], YX67-36-9453 08:00-0400Respiratory Rate 16 /minDouglbee [facility], BA56-99-7542 02:13-0400BMI (Body Mass Index) 35.96 kg/n1Gidusxv [facility], HC95-19-7851 02:13-0400Body xwxuqy488.45 kgDoKettering Health Main Campus, PU95-56-9346 02:13-9500Fkcbkm789.3 cmDougmartin John [facility], FW39-45-0087 21:03-0400BMI (Body Mass Index)34.44 kg/m2Syed [facility], NC76-41-5130 21:03-0400Body wvohuv934.[address] [facility], NQ71-92-2335 21:03-0400BP Igdkivwmb24 mm[Hg][facility], BG38-55-0762 21:03-0400BP Inkfsqis007 mm[Hg][facility], DP69-75-7599 21:03-7139Sbjrsk237.8 cmSyed [facility], YA13-06-6476 21:03-0400Pulse (Heart Rate)81 /minSyed [facility], [place] 08-17-2019 21:03-0400Pulse Muqkroth62 %[facility], [place] 08-17-2019 21:03-0400Respiratory Rate16 /minSyed [facility], [place] 08-17-2019 17:30-0400Body Wnwkxqcmhdn67.29 [degF][facility], [place] Encounters Encounter DateEncounter TypeCare ProviderFacilityStart: 69-57-3476nhfnmyvuruUG ELAINE JOHNFacility:J8Kjxbt: 40-97-0673Ecliaibyf for general adult medical examination without abnormal findingsDR ELAINE EdouardSouthview Medical Centertart: 01-24-2022 End: 13-90-8255wnhggiaizzJE ELAINE Johnsoncility:Y4Uobaq: 01-24-2022 End: 33-29-0488Mhxjocyht for general adult medical examination without abnormal findingsDR ELAINE Johnsoncility:F7Znsjn: 51-63-2853Gbhyrwg encounter procedure Elaine Dhruv [facility] KYStart: 08-18-2019 End: 64-11-6975Ndlwoyeyzn and management of inpatientIRFAN Mitchveronika [facility] Centertart: 08-17-2019 End: 18-65-0067Qzibgxlwl department patient visitDOUGMARTIN Casiano [facility] Connecticuttart: 08-17-2019 End: 12-08-5162Jtrbwgzef department patient visitSyed Gregg Dominguez Work Phone: [facility] EDComment on above:Suicidal ideation (Primary Dx)Start: 45-39-4818Qgtoudx encounter procedureDojerrod ErendiraLEEANNA Admitting Procedures DateProcedureProcedure DetailPerforming ClinicianStart: 18-99-8633GBF screening DR ELAINE JULIENomment on above:Performed By: #### PSASC #### [facility] [address] [place] [address] Dr. Levy ChangStart: 98-18-6344CSXFLNLZQ PATIENTIRFAN AHMEDStart: 08-19-2019 PATIENT MONITORING CLOSE Q 15 MINUTESIRFAN AHMEDStart: 85-34-4745KLRISJO COMMUNICATIONIRFAN AHMEDStart: 32-92-4579TQCE GENERALIRFAN AHMEDStart: 59-73-2872DWNI CODEIRFAN AHMEDStart: 39-06-0159MYTLPGIVKMGU AHMEDStart: 69-80-9964AJQZATH COMMUNICATIONIRFAN AHMEDStart: 58-79-1223IIWCQTZ STATUS (FROM ED OR OR/PROCEDURAL)IRFAN AHMEDStart: 19-03-3537MQVRS SIGNSIRFAN AHMEDStart: 45-65-0863Inse screen class list aDOUGLAS HOYStart: 34-14-5747Pwv routine ecg w/least 12 lds w/i&rDOUGLAS HOYStart: 44-19-2524TXVYLEC PRECAUTIONSDOUGLAS GEMMA Start: 47-34-1667Gdko screen class list aEdelon Schroeder Work Phone: Start: 15-60-1302Anb routine ecg w/least 12 lds i&r onlyEtan E Eitches Work Phone: Start: 56-69-6822Cfo routine ecg w/least 12 lds w/i&r Jovan E Eitches Work Phone: Start: 64-94-8688LBT REPORTHpf ScanningStart: 58-25-5659Tswve of acetaminophenEtan E Eitches Work Phone: Start: 33-83-4071Hmmtt of ethanolEtan E Eitches Work Phone: Start: 37-15-2186Bwqzj of salicylateEtan E Eitches Work Phone: Start: 77-07-2706Xefga count complete auto&auto difrntl wbcEtan E Eitches Work Phone: Start: 87-49-5153Phumintfvsiop metabolic panelEtan E Alexandre Work Phone: Plan of Treatment DateCare ActivityDetailAuthorStart: 18-56-7635Afpnewnza vaccinationFlu vaccine (Season Ended)[facility] 12 LeadEKG 12 Lead ECG STAT 08/17/2019 6:23 PM [place] [facility] DatePayer CategoryPayerPolicy [id number] [facility] [place] PPO xxxxxxxxxxxx 2014-Present [address] [place], [place] [address]uiotkaacdpvt .[id number] [id number] .[id number] .[id number] .[id number] [id number]s-[id number] [id number] Social History DateTypeDetailFacilityStart: 02-35-2484Fhuiemi smoking status NHISCurrent every day smokerHolzer Hospital, AKHistory of tobacco useCigarette SmokerHolzer Hospital, AKSex Assigned At BirthNot on fileHolzer Hospital, AKExposure to SARS-CoV-2 (event)Unable to assessHolzer Hospital, KYStart: 72-17-4241Cvsruqk smoking status NHISFormer smokerHolzer Hospital, AKStart: 26-99-6143Omsnfjc intakeCurrent drinker of alcohol (finding)[facility], AKStart: 08-18-2019 Alcohol Commentnightly for past 2 weeksHolzer Hospital, [place] Assessments Diagnosis Suicidal ideation Advance Directives No Advanced Directives Records FoundDocuments on File TypeDate RecordedPatient RepresentativeExplanationAdvance Directives and Living WillPower of AttorneyTypeDate RecordedPatient RepresentativeExplanationAdvance Directives and Living WillPower of AttorneyCode StatusDate ActivatedDate InactivatedCommentsFull Code08/18/2019 1:56 AM Summary Purpose Family History No Family History Records Found Medical HistoryRelationNameCommentsHigh Blood PressureFatherArrhythmiaMother RelationNameStatusCommentsFatherMother Additional Source Comments (unrecognized sect ion and content) No Status Records FoundNo Status Records FoundNo Status Records Found INFORMATION SOURCE (unrecogn ized section and content) DATE CREATED AUTHOR 08/17/2019 [facility] DATE CREATED AUTHOR AUTHOR'S ORGANIZ ATION 09/07/2019 [facility] DATE CREATED AUTHOR AUTHOR'S ORGANIZ ATION 02/17/2022 [facility] FOR RECORDS PERTAINING TO PATIENTS WHO ARE OR HAVE BEEN ENROLLED IN A CHEMICAL DEPENDENCY/SUBSTANCEABUSE PROGRAM, SOME INFORMATION MAY BE OMITTED. This clinical summary was aggregated from multiple sources. Caution should be exercised in using it in the provision of clinical care. This summary normalizes information from multiple sources, and as a consequence, information in this document may materially change the coding, format and clinical context of patient data. In addition, data may be omitted in some cases. CLINICAL DECISIONS SHOULD BE BASED ON THE PRIMARY CLINICAL RECORDS. [facility] [employer] [facility]. provides no warranty or guarantee of the accuracy or completeness of information in this document.
[2025-02-19 14:30] LABS: Hematocrit 40.1 % (42.0-54.0); Hemoglobin 13.8 g/dL (14.0-18.0); Immature Granulocytes Abs Auto 0.02 10^3/uL (0.00-0.03); Immature Granulocytes Pct Auto 0.4 % (0.0-0.5); Lymphocytes Absolute Auto 1.3 10^3/uL (1.2-3.8); Mean Corpuscular HGB Conc 34.4 g/dL (29.9-35.2); Mean Corpuscular Hemoglobin 31.8 pg (25.9-34.0); Mean Corpuscular Volume 92.4 fL (80.0-94.0); Platelet Count 220 10^3/uL (150-450); Red Blood Count 4.34 10^6/uL (4.70-6.10); White Blood Count 5.5 10^3/uL (4.0-11.0)
[2025-02-19 15:13] LABS: Alanine Aminotransferase 38 U/L (16-63); Albumin Globulin Ratio 1.0; Albumin Level 3.9 g/dL (3.4-5.0); Alkaline Phosphatase 82 U/L (46-116); Anion Gap 12.9; Aspartate Amino Transferase 33 U/L (15-37); Blood Urea Nitrogen 12.0 mg/dL (7.0-18.0); Calcium 9.0 mg/dL (8.5-10.1); Carbon Dioxide 28.2 mmol/L (21.0-32.0); Chloride 99 mmol/L (98-107); Cholesterol 159 mg/dL (<=200); Estimated GFR (African America >60 (>=60 mL/min/1.73m^2); Estimated GFR (Non-African Ame >60 (>=60 mL/min/1.73m^2); Free T3 2.37 pg/mL (2.18-3.98); Globulin 3.9 g/dL; Glucose 80 mg/dL (74-106); HDL Cholesterol 25 mg/dL (40-60); Potassium 4.1 mmol/L (3.5-5.1); Sodium 136 mmol/L (136-145); Thyroid Stimulating Hormone 0.846 uIU/mL (0.358-3.740); Total Protein 7.8 g/dL (6.4-8.2); Triglycerides 337 mg/dL (<=150); VLDL CHOLESTEROL 67.4 mg/dL
== END 2025-02-19 13:54 | disposition home or self-care (01) ==
PROVIDERS: PCP Family Medicine; Visit Provider Family Medicine
DX: Z00.00 Encounter for general adult medical examination without abnormal findings (principal); Z12.5 Encounter for screening for malignant neoplasm of prostate
CPT/HCPCS: 36415; 80053; 80061; 83036; 83525; 84403; 84436; 84443; 84481; 85025; G0103

== ENCOUNTER 2025-02-23 15:52 | Outpatient (OUT) | payer BC, SELFPAY ==
--- OUTSIDE RECORDS SUMMARY | 2025-02-23 16:21 | XMS_ITS | CCD ---
Author Organization [facility] Care Team Providers Care Doctor Of Chiropractic Name Role Phone Elaine John Primary Care [...] mg oral capsule (1 source)Serotonin Reuptake InhibitorStart: 89-39-4134wgzj 1 capsule by mouth once dailyFLUoxetine (PROZAC) 10 MG capsule Take 1 capsule by mouth daily 30 capsule 0 08/26/2019 ActiveStart: 81-92-0990dbcl 1 capsule by mouth once daily FLUoxetine (PROZAC) 10 MG capsule Take 1 capsule by mouth daily 30 capsule 0 08/26/2019 ActivehydrOXYzine hydrochloride 50 mg oral tablet (1 source)AntihistamineStart: 08-25-2019 End: 62-08-4587phpu 1 tablet by mouth three times daily [...] mg oral tablet (1 source)BenzodiazepineStart: 08-17-2019 End: 71-04-3476EKFcguijc (ATIVAN) tablet 1 mg Problems Problem ClassificationProblemDateDocumented DateEpisodic/ChronicMood disorders (1 source)Severe recurrent major depression without psychotic features; Translations: [Severe episode of recurrent major depressive disorder, without psychotic features]Onset: [id number] screening for suspected conditions (not mental disorders or infectious disease) (1 source)Encounter for screening for malignant neoplasm of prostate; Translations: [ENC SCREEN MALIG NEOPLASM PROSTATE]Onset: 15-61-9704Fgsshzll Suicide and intentional self-inflicted injury (2 sources)Suicidal thoughts; Translations: [Suicidal ideation]Episodic Results Test NameValueInterpretationReference RangeFacilityINSULINon 18-34-6102Qsojrax 21.0 uIU/mLNormal2.6-24.9[facility] HospitalComment on above:Performed By: #### INSULIN #### [facility] [address] [place] [address] Dr. Cam Gómez AUTO DIFFon 11-06-2975WDRI #0.1 103/ulNormal0.0-0.1[facility] HospitalComment on above:Performed By: #### CBC #### [facility] [address] [place] [address] Dr. Cam Leessophils/100 WBC (Bld)1.0 %Normal0.2-2.0[facility] Comment on above:Performed By: #### CBC #### [facility] [address] [place] [address] Dr. Cam Ramírez #0.1 103/ulNormal0.0-0.7The [facility] CenterComment on above: Performed By: #### CBC #### [facility] [address] [place] [address] Dr. Cam Wilderosinophils/100 WBC (Bld)2.6 %Normal0.9-7.0[facility] Comment on above:Performed By: #### CBC #### [facility] [address] [place] [address] Dr. Yilan ChangErythrocyte distribution width (RBC) [Ratio]12.2 %Ruqkit64.0-15.0 The [facility] CenterComment on above:Performed By: #### CBC #### [facility] [address] [place] [address] Dr. Cam KellerHematocrit (Bld) [Volume fraction]44.6 %Burqtf55.0-54.0The [facility] CenterComment on above:Performed By: #### CBC #### [facility] [address] [place] [address] Dr. Cam KellerHemoglobin (Bld) [Mass/Vol]14.9 g/tAHaarfc14.0-18.0The [facility] CenterComment on above:Performed By: #### CBC #### [facility] [address] [place] [address] Dr. Cam Hoover #0.01 10e3/ulNormal0.00-0.03The [facility] CenterComment on above:Performed By: #### CBC #### [facility] [address] [place] [address] Dr. Cam Hoover %0.2 %Normal0.0-0.5The [facility] CenterCommunson healthcare [facility] on above: Performed By: #### CBC #### [facility] [address] [place] [address] Dr. Cam SheldonH #1.4 103/ulNormal1.2-3.8The [facility] CenterComment on above:Performed By: #### CBC #### [facility] [address] [place] [address] Dr. Cam Rodriguezmphocytes/100 WBC (Bld)27.1 %Pkxbhs04.5-60.0The [facility] CenterComment on above:Performed By: #### CBC #### [facility] [address] [place] [address] Dr. Cam KingUAL DIFF REQNONormalThe [facility] CenterComment on above: Performed By: #### CBC #### [facility] [address] [place] [address] Dr. Cam Jones (RBC) [Entitic mass]30.9 gyOqwbvl34.9-34.0The [facility] CenterComment on above:Performed By: #### CBC #### [facility] [address] [place] [address] Dr. Cam Jones (RBC) [Mass/Vol]33.4 g/gHQnxzuv78.9-35.2The [facility] CenterComment on above:Performed By: #### CBC #### [facility] [address] [place] [address] Dr. Cam Jones (RBC) [Entitic vol]92.5 pNOkrnpz23.0-94.0The [facility] CenterComment on above:Performed By: #### CBC #### [facility] [address] [place] [address] Dr. Cam Clifford #0.5 103/ulNormal0.3-0.8The [facility] CenterComment on above:Performed By: #### CBC #### [facility] [address] [place] [address] Dr. Cam Simpsonocytes/100 WBC (Bld)9.8 %Normal1.7-12.0The [facility] Comment on above:Performed By: #### CBC #### [facility] [address] [place] [address] Dr. Cam RamírezUT #3.0 103/ulNormal1.4-6.5The [facility] CenterComment on above:Performed By: #### CBC #### [facility] [address] [place] [address] Dr. Cam Ramírezutrophils/100 WBC (Bld)59.3 %Vtoqtx70.0-75.0The [facility] CenterComment on above:Performed By: #### CBC #### [facility] [address] [place] [address] Dr. Cam Villaseñorlet mean volume (Bld) [Entitic vol]8.9 fLCritically low 9.5-13.5The [facility] CenterComment on above:Performed By: #### CBC #### [facility] [address] [address] [address] Cam KellerPLT224 103/deVmcgzv664-160Ulc [facility] on above: Performed By: #### CBC #### [facility] [address] [address] [address] Cam KellerRBC4.82 106/ulNormal4.70-6.10ThGuernsey Memorial HospitalCommunson healthcare grayling hospital on above:Performed By: #### CBC #### [facility] [address] [address] [address] Cam KellerWBC5.0 103/ulNormal4.0-11.0The [facility] CenterComment on above: Performed By: #### CBC #### [facility] [address] [place] [address] Dr. Cam KellerFRALAN THYROXINE INDEX T7on 01-65-7388QKL0.54Gmkjlj4.30-4.50[facility] HospitalCommunson healthcare gray[facility] hospital on above:Performed By: #### T7 #### [facility] [address] [place] [address] Dr. Cam KellerT3U33.0 %Yqxivw05.0-40.0[facility] on above: Performed By: #### T7 #### [facility] [address] [place] [address] Dr. Cam KellerT4 [Mass/Vol]6.20 ug/dLNormal4.50-12.10ThGuernsey Memorial Hospital Comment on above:Performed By: #### T7 #### [facility] [address] [place] [address] Dr. Cam KellerGLYCOHEMOGLOBIN A1Con 49-16-8580HFM RECOMMENDATIONSEE BELOWNormRegency Hospital Cleveland EastCommunson healthcare grayling hospital on above:Result Comment: ADA RECOMMENDED LIMIT 4.0 - 6.0 ADA THERAPEUTIC TARGET < 7.0 ACTION SUGGESTED > 7.0Performed By: #### A1C #### [facility] [address] [place] [address] Dr. Cam KellerGlucose [Mass/Vol]105 mg/[facility] on above:Performed By: #### A1C #### [facility] [address] [address] [address] Cam KellerHbA1c (Bld) [Mass fraction]5.3 %Normal4.5-6.2[facility] on above:Performed By: #### A1C #### [facility] [address] [place] [address] Dr. Cam KellerLIPID PROFILEon 90-49-6219SAPB-HDL RATIO NORMSEE [facility] on above:Result Comment: 3.3 - 4.4 LOW RISK 4.4 - 7.1 AVERAGE RISK 7.1 - 11.0 MODERATE RISK >11.0 HIGH RISKPerformed By: #### URIC, T4, CMP, TSH, LIPID #### [facility] [address] [place] [address] Dr. Cam Fonsecaesterol [Mass/Vol]247 mg/dLCritically high<=200The [facility] on above:Performed By: #### URIC, T4, CMP, TSH, LIPID #### [facility] [address] [place] [address] Dr. Cam Fonsecaesterol in HDL [Mass/Vol]32 mg/dLCritically xir80-05Udf [facility] on above:Performed By: #### URIC, T4, CMP, TSH, LIPID #### [facility] [address] [place] [address] Dr. Cam Fonsecaesterol in LDL [Mass/Vol]142.2 mg/dLPremier Health Upper Valley Medical Center on above:Performed By: #### URIC, T4, CMP, TSH, LIPID #### [facility] [address] [place] [address] Dr. Cam Gonzalez.total/Cholesterol in HDL [Mass ratio]7.7 {ratio} NormalOhio State University [facility] on above:Performed By: #### URIC, T4, CMP, TSH, LIPID #### [facility] [address] [place] [address] Dr. Yilan ChangHDL NORMAL> or = 60 mg/dl - LOW CARDIOVASCULAR RISK <40 mg/dl - HIGH CARDIOVASCULAR RISKSuburban Community Hospital & Brentwood Hospitalment on above:Performed By: #### URIC, T4, CMP, TSH, LIPID #### [facility] [address] [place] [address] Dr. Cam Vang CALC NORMALSEE BELOWMercy HospitalComment on above:Result Comment: <100 mg/dl OPTIMAL 100 - 129 mg/dl NEAR OR ABOVE OPTIMAL 130 - 159 mg/dl BORDERLINE HIGH 160 - 189 mg/dl HIGH >190 mg/dl VERY HIGH Performed By: #### URIC, T4, CMP, TSH, LIPID #### [facility] [address] [place] [address] Dr. Cam KellerTriglyceride [Mass/Vol]364 mg/dLCritically high<=150The [facility] on above:Performed By: #### URIC, T4, CMP, TSH, LIPID #### [facility] [address] [place] [address] Dr. Cam KellerVLDL CALC72.8 mg/dLNoMercy Health St. Vincent Medical CenterCommunson healthcare [facility]ling hospital on above: Performed By: #### URIC, T4, CMP, TSH, LIPID #### [facility] [address] [place] [address] Dr. Cam Dietrich BLD IMMUNO SCREENon 43-02-5290QTPNZJ BLOODNegativeNormal NEGATIVEThe [facility] on above:Performed By: #### A1C #### [facility] [address] [place] [address] Dr. Cam KellerPROF 14(COMP METB)on 00-64-0402Aoiraxa [Mass/Vol]3.8 g/dLNormal 3.4-5.0The [facility] on above:Performed By: #### URIC, T4, CMP, TSH, LIPID #### [facility] [address] [place] [address] Dr. Cam KellerAlbumin/Globulin [Mass ratio]0.9 {ratio}NormalThe [facility] CenterCommunson healthcare grayling hospital on above:Performed By: #### URIC, T4, CMP, TSH, LIPID #### [facility] [address] [place] [address] Dr. Cam Hatfield [Catalytic activity/Vol]68 U/FMpdspk40-044Wcz [facility]ment on above:Performed By: #### URIC, T4, CMP, TSH, LIPID #### [facility] [address] [place] [address] Dr. Cam Childers [Catalytic activity/Vol]37 U/HUpfzom76-52Cif [facility] CenterComment on above:Performed By: #### URIC, T4, CMP, TSH, LIPID #### [facility] [address] [place] [address] Dr. Cam Treviño gap [Moles/Vol]11.0 mmol/LNormalThe [facility] Comment on above:Performed By: #### URIC, T4, CMP, TSH, LIPID #### [facility] [address] [place] [address] Dr. Cam Freeman [Catalytic activity/Vol]21 U/RSoplpc20-53Epf [facility] CenterComment on above:Performed By: #### URIC, T4, CMP, TSH, LIPID #### [facility] [address] [place] [address] Dr. Cam KellerBilirubin [Mass/Vol]0.3 mg/dLNormal0.2-1.0[facility] Comment on above:Performed By: #### URIC, T4, CMP, TSH, LIPID #### [facility] [address] [place] [address] Dr. Cam KellerCalcium [Mass/Vol]9.2 mg/dLNormal8.5-10.1[facility] Comment on above:Performed By: #### URIC, T4, CMP, TSH, LIPID #### [facility] [address] [place] [address] Dr. Cam KellerChloride [Moles/Vol]101 mmol/YVyigrs19-038UkqCleveland Clinic Avon Hospital Comment on above:Performed By: #### URIC, T4, CMP, TSH, LIPID #### [facility] [address] [place] [address] Dr. Yilan ChangCO2 [Moles/Vol]28.5 mmol/DSdwpqt60.0-32.0The [facility] Comment on above:Performed By: #### URIC, T4, CMP, TSH, LIPID #### [facility] [address] [address] [address] Cam KellerCreatinine [Mass/Vol]1.15 mg/dLNormal0.70-1.30The [facility] CenterComment on above:Performed By: #### URIC, T4, CMP, TSH, LIPID #### [facility] [address] [address] [address] Cam WilderGFR-AF AZERBAIJANI>60Normal>=60The [facility] CenterComment on above:Performed By: #### URIC, T4, CMP, TSH, LIPID #### [facility] [address] [place] [address] Dr. Cam WilderGFR-NON AF AZERBAIJANI>60Normal>=60The [facility] CenterComment on above:Performed By: #### URIC, T4, CMP, TSH, LIPID #### [facility] [address] [place] [address] Dr. Cam KellerGlobulin (S) [Mass/Vol]4.3 g/dLNormalThe [facility] CenterComment on above:Performed By: #### URIC, T4, CMP, TSH, LIPID #### [facility] [address] [place] [address] Dr. Cam KellerGlucose [Mass/Vol]91 mg/tCNosmhf95-460Urj [facility] Comment on above:Performed By: #### URIC, T4, CMP, TSH, LIPID #### [facility] [address] [place] [address] Dr. Cam KellerPotassium [Moles/Vol]4.5 mmol/LNormal3.5-5.1The [facility] Comment on above:Performed By: #### URIC, T4, CMP, TSH, LIPID #### [facility] [address] [place] [address] Dr. Cam KellerProtein [Mass/Vol]8.1 g/dLNormal6.4-8.2The [facility] Comment on above:Performed By: #### URIC, T4, CMP, TSH, LIPID #### [facility] [address] [place] [address] Dr. Cam Stringerdium [Moles/Vol]136 mmol/NJgycqk954-790Yts [facility] Comment on above:Performed By: #### URIC, T4, CMP, TSH, LIPID #### [facility] [address] [place] [address] Dr. Cam KellerUrea nitrogen [Mass/Vol]16.0 mg/dLNormal7.0-18.0The [facility] CenterComment on above:Performed By: #### URIC, T4, CMP, TSH, LIPID #### [facility] [address] [place] [address] Dr. Cam Garcia nitrogen/Creatinine [Mass ratio]13.9 mg/mgNormalThe [facility] CenterComment on above:Performed By: #### URIC, T4, CMP, TSH, LIPID #### [facility] [address] [place] [address] Dr. Cam KellerT4on 32-83-8009P2 [Mass/Vol]5.30 ug/dLNormal4.50-12.10The [facility] CenterComment on above:Performed By: #### URIC, T4, CMP, TSH, LIPID #### [facility] [address] [place] [address] Dr. Cam Lopez 75-53-3350JTH5.897 uIU/mLNormal0.358-3.740The [facility] CenterComment on above:Performed By: #### URIC, T4, CMP, TSH, LIPID #### [facility] [address] [place] [address] Dr. Cam Yun ACID SERUMon 75-41-0559Pyziq [Mass/Vol]5.2 mg/dLNormal 3.5-7.2The [facility] CenterComment on above:Performed By: #### URIC, T4, CMP, TSH, LIPID #### [facility] [address] [place] [address] Dr. Levy ChangEKG 12 Leadon 65-56-0026Gvzfvg Uqsv41GLWDlpoy Health- [place], [place] Vtll63kjuezpzXpkeb Health- [place], [place]-R Sziagyqf439 msMercy Health- [place], KYQ-T Oshhqxgw378 msMercy Health- [place], KYQRS Tmmeolgj50 msMercy Health- [place], KYQTc Calculation (Joanie)389 msMercy Health- [place], KYR [place]-3degreesMercy Health- [place], KYT Csgx49kaxtuzhNayzf Health- [place], KYVentricular Tgsb96JNFOufnq Health- [place], [place] Normal sinus rhythm Normal ECG When compared with ECG of 22-JUN-2011 22:17, No significant change was found Confirmed by STANISLAV CHERRY ([id number]) on 08/18/2019 1:43:47 PMMercy Health- [place], KYEdi, Mhpn Incoming Ekg Results From [facility] [place], [place] - 08/18/2019 1:43 PM EDT Normal sinus rhythm Normal ECG When compared with ECG of 22-JUN-2011 22:17, No significant change was found Confirmed by STANISLAV CHERRY ([id number]) on 08/18/2019 1:43:47 PMMer Health- [place], KYAcetaminophenon 12-11-0056Arvepdkiqaouv [Mass/Vol]<8Uku08-54Ymmab [facility]iffin HospitalComment on above:Performed By: #### ALCB, ACET #### [address] [place] [address] Manufacturing Engineer Supervisor: Jose L Gold [facility] with Diffon 78-82-1891Oxp. Basophil0.05 k/uL Normal0.00-0.20MerKettering Health Preble HospitalComment on above:Performed By: #### CDP, CP, SALI #### [address] [place] [address] Manufacturing Engineer Supervisor: Jose L Gold [facility].Imm.Granulocyte<0.86Qyjvte6.00-0.30MerKettering Health Preble HospitalComment on above:Performed By: #### CDP, CP, SALI #### [address] [place] [address] Manufacturing Engineer Supervisor: Paola Mcdermott.Neutrophil (Seg)3.56 k/uLNormal1.50-8.10[facility] HospitalComment on above:Performed By: #### CLEMENT MORGAN, SALI #### [address], [place] [address] Manufacturing Engineer Supervisor: Jose L Gold MDBasophils/100 WBC (Bld)1 %Normal0-2[facility] [place] HospitalComment on above:Performed By: #### CATHY CP, SALI #### [address] [place] [address] Manufacturing Engineer Supervisor: Jose L Gold MDEosinophils (Bld) [#/Vol]0.10 10*3/uLNormal 0.00-0.44[facility] HospitalComment on above:Performed By: #### CLEMENT MORGAN, SALI #### [address], [place] [address] Manufacturing Engineer Supervisor: QIANA Mcdermottosinophils/100 WBC (Bld)2 %Normal1-4[facility] HospitalComment on above:Performed By: #### CLEMENT MORGAN, SALI #### [address] [place] [address] Manufacturing Engineer Supervisor: Jose L Gold MDErythrocyte distribution width (RBC) [Ratio]12.3 %Fuluca86.8-14.4[facility] HospitalComment on above:Performed By: #### CATHY CP, SALI #### [address] [place] [address] Manufacturing Engineer Supervisor: Jose L Gold MDHematocrit (Bld) [Volume fraction]43.4 %Normal 40.7-50.3[facility] [place] HospitalComment on above:Performed By: #### CATHY CP, SALI #### [address], [place] [address] Manufacturing Engineer Supervisor: Jose L Gold MDHemoglobin (Bld) [Mass/Vol]14.9 g/dLNormal 13.0-17.0[facility] Hospital LimaComment on above:Performed By: #### CLEMENT MORGAN, SALI #### [address], [place] [id number] Manufacturing Engineer Supervisor: Jose L Gold MDImmature granulocytes (Bld) [#/Vol]0 %Normal0 [facility] Hospital LimaComment on above:Performed By: #### CLEMENT MORGAN, SALI #### [address] [place] [address] Manufacturing Engineer Supervisor: Anne-Marie Mcdermottmphocytes (Bld) [#/Vol]1.35 10*3/uLNormal 1.10-3.70[facility] Hospital LimaComment on above:Performed By: #### CLEMENT MORGAN, SALI #### [address], [facility]83 Manufacturing Engineer Supervisor: Anne-Marie Mcdermottmphocytes/100 WBC (Bld)23 %Tzb04-28IlcyoScci Hospital LimaComment on above:Performed By: #### CLEMENT MORGAN, SALI #### [address] [place] [address] Manufacturing Engineer Supervisor: ALEX Mcdermott (RBC) [Entitic mass]31.5 qsIcecid30.2-33.5 [facility] HospitalComment on above:Performed By: #### CATHY CP, SALI #### [address] [place] [address] Manufacturing Engineer Supervisor: ALEX McdermottC (RBC) [Mass/Vol]34.3 g/yWJpgevh42.4-34.8 [facility] HospitalComment on above:Performed By: #### CATHY CP, SALI #### [address] [place] [address] Manufacturing Engineer Supervisor: BISI McdermottCV (RBC) [Entitic vol]91.8 fPErhyeu27.6-102.9 [facility] HospitalComment on above:Performed By: #### CLEMENT MORGAN, SALI #### [address], [facility]83 Manufacturing Engineer Supervisor: BISI Mcdermottonocytes (Bld) [#/Vol]0.71 10*3/uLNormal 0.10-1.20[facility] HospitalComment on above:Performed By: #### CATHY CP, SALI #### [address], [place] [address] Manufacturing Engineer Supervisor: BISI Mcdermottonocytes/100 WBC (Bld)12 %Normal3-12[facility] HospitalComment on above:Performed By: #### CLEMENT MORGAN, SALI #### [address], [place] [address] Manufacturing Engineer Supervisor: Birgit Mcdermottutrophil (Seg)62 %Nfvkfz64-86Mbhfb [facility]iffin HospitalComment on above:Performed By: #### CLEMENT MORGAN, SALI #### [address], [place] [address] Manufacturing Engineer Supervisor: Jose L Gold MDNRBC Automated0.0 per 100 WBCNormal0.0[facility] HospitalComment on above:Performed By: #### CLEMENT MORGAN, SALI #### [address], [facility]83 Manufacturing Engineer Supervisor: THEE Mcdermottlatelet mean volume (Bld) [Entitic vol]8.9 fL Normal8.1-13.5MerKettering Health Preble HospitalComment on above:Performed By: #### CATHY CP, SALI #### [address], [facility]25 [address] Manufacturing Engineer Supervisor: THEE Mcdermottlatelets (Bld) [#/Vol]197 10*3/jYXnzzec304-456 [facility] HospitalComment on above:Performed By: #### CDP, CP, SALI #### [facility] [address] [place] [address] Manufacturing Engineer Supervisor: MARTHA Mcdermott (Bld) [#/Vol]4.73 10*6/uLNormal4.21-5.77[facility] HospitalComment on above:Performed By: #### CDP, CP, SALI #### [address] [place] [address] Manufacturing Engineer Supervisor: PRO Mcdermott (Bld) [#/Vol]5.8 10*3/uLNormal3.5-11.3MSelect Medical [facility] HospitalComment on above:Performed By: #### CATHY, CP, SALI #### [address] [place] [address] Manufacturing Engineer Supervisor: James Mcdermott PerformedNOT REPORTEDNormalScci Hospital LimaComment on above:Performed By: #### CATHY, CP, SALI #### [address] [place] [address] Manufacturing Engineer Supervisor: Tricia Mcdermott (Bld) [#/Vol]NOT REPORTEDProtestant Deaconess Hospital- [place], KYComment on above:Performed By: #### CDP, CP, SALI #### [address] [place] [address] Manufacturing Engineer Supervisor: MARTHA Mcdermott morphology finding Nom (Bld)NOT REPORTEDProtestant Deaconess Hospital- [place], KYComment on above:Performed By: #### CDP, CP, SALI #### [address] [place] [address] Manufacturing Engineer Supervisor: PRO Mcdermott MorphologyNOT REPORTEDProtestant Deaconess Hospital- [place], [place] Comment on above:Performed By: #### CDP, CP, SALI #### [address] [place], [place] [id number] Manufacturing Engineer Supervisor: YOMAIRA Mcdermottlayton hospital Metabolic Profon 08-17-2019(cont.)Normal [facility] Hospital LimaComment on above:Result Comment: Average GFR for 40-49 years old: 99 mL/min/1.73sq m Chronic Kidney Disease: <60 mL/min/1.73sq m Kidney failure: <15 mL/min/1.73sq m eGFR calculated using average adult body mass. Additional eGFR calculator available at: [email or web address] By: #### CLEMENT MORGAN, SALI #### [address], [place] [id number] Manufacturing Engineer Supervisor: Jose L Gold MDAlbumin [Mass/Vol]4.3 g/dLNormal3.5-5.2MSelect Medical OhioHealth Rehabilitation Hospital - Dublin HospitalComment on above:Performed By: #### CLEMENT MORGAN, SALI #### [address] [place] [address] Manufacturing Engineer Supervisor: Jose L Gold MDAlbumin/Globulin [Mass ratio]1.3 {ratio}Normal 1.0-2.5Scci Hospital LimaComment on above:Performed By: #### CLEMENT MORGAN, SALI #### [address] [place] [address] Manufacturing Engineer Supervisor: Patricia Mcdermottline Phos54 U/MFqtkbf36-458BllllScci Hospital LimaComment on above:Performed By: #### CLEMENT MORGAN, SALI #### [address], [place] [id number] Manufacturing Engineer Supervisor: Jose L Gold MDALT [Catalytic activity/Vol]15 U/LNormal5-41Scci Hospital LimaComment on above:Performed By: #### CLEMENT MORGAN, SALI #### [address], [facility]97 [phone] Manufacturing Engineer Supervisor: Jose L Gold MDAnion gap [Moles/Vol]13 mmol/LNormal9-17[facility] HospitalComment on above:Performed By: #### CLEMENT MORGAN, SALI #### [address] [place] [address] Manufacturing Engineer Supervisor: Jose L Gold MDAST [Catalytic activity/Vol]18 U/LNormal<40MerKettering Health Preble HospitalComment on above:Performed By: #### CATHY CP, SALI #### [facility] [address], [facility]83 Manufacturing Engineer Supervisor: Jose L Gold MDBilirubin Ql (U)0.27 mg/dLLow0.3-1.2[facility] HospitalComment on above:Performed By: #### CLEMENT MORGAN, SALI #### [address], [place] [address] Manufacturing Engineer Supervisor: Jose L Gold MDBUN/CRE Ttmuu27Xmmfro3-08Rpjsr [facility] Comment on above:Performed By: #### CLEMENT MORGAN, SALI #### [address] [place] [address] Manufacturing Engineer Supervisor: Jose L Gold MDCalcium [Mass/Vol]9.8 mg/dLNormal8.6-10.4[facility] Hospital LimaComment on above:Performed By: #### CLEMENT MORGAN, SALI #### [address] [place] [address] Manufacturing Engineer Supervisor: Jose L Gold, MDChloride [Moles/Vol]99 mmol/KDcxjxy35-049Jafwr [facility] HospitalComment on above:Performed By: #### CLEMENT MORGAN, SALI #### [address] [place] [address] Manufacturing Engineer Supervisor: Jose L Gold MDCO2 [Moles/Vol]25 mmol/ZXobfmz90-40Vbbjn [facility] HospitalComment on above:Performed By: #### CATHY CP, SALI #### [address], [place] [id number] Manufacturing Engineer Supervisor: YOMAIRA Mcdermottreatinine [Mass/Vol]1.16 mg/dLNormal0.70-1.20 [facility] HospitalComment on above:Performed By: #### CATHY CP, SALI #### [address], [place] [id number] Manufacturing Engineer Supervisor: Jose L Gold MDGFR, Amer>60Normal>60[facility] Comment on above:Performed By: #### CLEMENT MORGAN, SALI #### [address], [place] [id number] Manufacturing Engineer Supervisor: JAMIE Mcdermott,non Amer>60Normal>60[facility] HospitalComment on above:Performed By: #### CLEMENT MORGAN, SALI #### [address] [place] [address] Manufacturing Engineer Supervisor: Jose L Gold MDGlucose [Mass/Vol]109 mg/mVDdou81-60Gsvfi Saint George HospitalComment on above:Performed By: #### CAHTY CP, SALI #### [address], [place] [address] Manufacturing Engineer Supervisor: THEE Mcdermottotassium [Moles/Vol]4.1 mmol/LNormal3.7-5.3[facility] HospitalComment on above:Performed By: #### CATHY CP, SALI #### [address], [place] 912[address]83 Manufacturing Engineer Supervisor: Jose L Gold MDProtein [Mass/Vol]7.6 g/dLNormal6.4-8.3[facility] HospitalComment on above:Performed By: #### CATHY CP, SALI #### [address], [place] [address] Manufacturing Engineer Supervisor: AIXA Mcdermottodium [Moles/Vol]137 mmol/PBwdaqm185-524Nflyb [facility] HospitalComment on above:Performed By: #### CLEMENT MORGAN, SALI #### [facility] [address], [facility]83 Manufacturing Engineer Supervisor: AIXA Mcdermotttaging:NormalProvidence Hospital HospitalComment on above:Result Comment: Stage 1: Some kidney damage normal GFR Stage 2: Mild kidney damage GFR 60-89 Stage 3: Moderate kidney damage GFR 30-59 Stage 4: Severe kidney damage GFR 15-29 Stage 5: Severe kidney damage GFR <15 ESRD - chronic treatment by dialysis or transplantPerformed By: #### CLEMENT MORGAN, SALI #### [address], [facility]83 Manufacturing Engineer Supervisor: Jose L Gold MDUrea nitrogen [Mass/Vol]17 mg/dLNormal6-20[facility] HospitalComment on above:Performed By: #### CLEMENT MORGAN, SALI #### [facility] [address], [facility]83 Manufacturing Engineer Supervisor: ANGEL Mcdermottrugon 31-70-8002Lszwtzo [Mass/Vol]mg/dL<10 mg/dL [facility]- [place], KYDrug Scr, Abuse, Uron 51-50-9004Nfmftydrhmz(s),UrNegative NormalNEGProvidence Hospital HospitalComment on above:Performed By: #### MAKENZIE #### [facility] [address], [facility]83 Manufacturing Engineer Supervisor: Jose L Gold MDBarbiturate(s),UrNegativeNormalNEGProvidence Hospital HospitalComment on above:Performed By: #### MAKENZIE #### [facility] [address] [place] [id number] Manufacturing Engineer Supervisor: Jose L Gold MDBase excess Calc (Bld) [Moles/Vol]NegativeNormal NEGProvidence Hospital HospitalComment on above:Performed By: #### MAKENZIE #### [address], [facility]83 Manufacturing Engineer Supervisor: Jose L Gold MDBenzodiazepine(s)NegativeNormalNEGMercy Saint George HospitalComment on above:Performed By: #### MAKENZIE #### [address], [facility]83 Manufacturing Engineer Supervisor: Jose L Gold MDBuprenorphrine, UrNegativeNormalNEGMercy Saint George HospitalComment on above:Performed By: #### MAKENZIE #### [address], [facility]83 Manufacturing Engineer Supervisor: YOMAIRA Mcdermottannabinoid(s),UrNegativeNormalNEGMercy Saint George HospitalComment on above:Performed By: #### MAKENZIE #### [address], [facility]83 Manufacturing Engineer Supervisor: BISI Mcdermottethadone Ql (U)NegativeNormalNEGMercy Saint George HospitalComment on above:Performed By: #### MAKENZIE #### [address], [facility]83 Manufacturing Engineer Supervisor: BISI Mcdermottethamphetamine, UrNegativeNormalNEGMercy Saint George HospitalComment on above:Performed By: #### MAKENZIE #### [address], [facility]83 Manufacturing Engineer Supervisor: Jose L Gold MDOpiate(s), UrNegativeNormalNEGMercy Saint George HospitalComment on above:Performed By: #### MAKENZIE #### [address], [facility]83 Manufacturing Engineer Supervisor: Jose L Gold MDOxycodone, UrineNegativeNormalNEGMercy Saint George HospitalComment on above:Performed By: #### MAKENZIE #### [facility] [address] [place] [address], [place] [phone] Manufacturing Engineer Supervisor: THEE Mcdermotthencyclidine, UrNegativeNormalNEGMercy Saint George HospitalComment on above:Performed By: #### MAKENZIE #### [address], [place] [phone] Manufacturing Engineer Supervisor: THEE Mcdermottropoxyphene,UrineNegativeNormalNEGMercy Saint George HospitalComment on above:Performed By: #### MAKENZIE #### [address], [place] [id number] Manufacturing Engineer Supervisor: Jose L Gold MDTricyclic antidepressants Screen Ql (U)Negative NormalNEGScci Hospital LimaCommunson healthcare grayling hospital on above:Result Comment: Drug screen results are to be used for medical purposes only. All positive results are unconfirmed. Testing for employment or legal uses should be sent to a reference laboratory for confirmation.Performed By: #### MAKENZIE #### [address], [place] [id number] Manufacturing Engineer Supervisor: Jose L Gold MDInterpretive InfoNOT REPORTEDNormalMercy Veterans Administration Medical CenterComment on above:Performed By: #### MAKENZIE #### [address], [place] 29[address]483 Manufacturing Engineer Supervisor: Jose L Gold MDMDMA, UrineNOT REPORTEDNormalNEGWadsworth-Rittman Hospitalcy Saint George HospitalComment on above:Performed By: #### MAKENZIE #### [address], [place] 8146383 Manufacturing Engineer Supervisor: Jose L Gold MDEthanol Alcoholon 35-29-6930Fvvzovy [Mass/Vol] mg/dLNormal<10[facility] HospitalComment on above:Performed By: #### ALCB, ACET #### [address], [place] 8[address]83 Manufacturing Engineer Supervisor: Jose L Gold MDEthanol percent<0.010Normal<0.010[facility] HospitalComment on above:Performed By: #### ALCB, ACET #### [facility] [address] [place] [address] Manufacturing Engineer Supervisor: Jose L Gold MDHematologyon 46-54-0915Grlxqcfll (Bld) [#/Vol] 0.05 10*3/uLSelect Medical Specialty Hospital [facility] [place], KYBasophils/100 WBC (Bld)1 %0 - 2 %[facility], KYEosinophils (Bld) [#/Vol]0.10 10*3/[facility] [place], KYEosinophils/100 WBC (Bld)2 %1 - 4 %[facility] [place], KYHematocrit (Bld) [Volume fraction]43.4 % 40.7 - 50.3 %[facility], KYHemoglobin (Bld) [Mass/Vol]14.9 g/dL13 - 17 g/dLThe [facility], KYLymphocytes (Bld) [#/Vol]1.35 10*3/[facility] [place], KYLymphocytes/100 WBC (Bld)23 %Low24 - 43 %[facility], KYMCH (RBC) [Entitic mass]31.5 pg25.2 - 33.5 pgThe [facility], KYMCV (RBC) [Entitic vol] 91.8 fL82.6 - 102.9 fLThe [facility], KYMonocytes (Bld) [#/Vol]0.71 10*3/uL [facility], KYMonocytes/100 WBC (Bld)12 %3 - 12 %[facility], [place] Platelets (Bld) [#/Vol]197 10*3/[facility], KYRBC (Bld) [#/Vol]4.73 10*6/uL4.21 - 5.77 m/[facility], KYWBC (Bld) [#/Vol]5.8 10*3/[facility] [place], KYWBC (Bld) [#/Vol]0.0 10*3/uL0.0 per 100 WBCThe [facility] Hospital, [place] Metabolic Panelon 42-22-5695Rcsxnap [Mass/Vol]4.3 g/dL3.5 - 5.2 g/dLThe [facility], KYALP [Catalytic activity/Vol]54 U/L40 - 129 U/[facility], [place] ALT [Catalytic activity/Vol]15 U/L5 - 41 U/[facility], KYAnion gap [Moles/Vol]13 mmol/L9 - 17 mmol/[facility], KYAST [Catalytic activity/Vol]18 U/L<40[facility], KYCalcium [Mass/Vol]9.8 mg/dL8.6 - 10.4 mg/dLThe [facility], KYChloride [Moles/Vol]99 mmol/L98 - 107 mmol/[facility], KYCO2 [Moles/Vol]25 mmol/L20 - 31 mmol/[facility], [place] Creatinine [Mass/Vol]1.16 mg/dL0.7 - 1.2 mg/dLThe [facility], KYGFR/1.73 sq M predicted among non-blacks MDRD (S/P/Bld) [Vol rate/Area][facility], [place] Comment on above:Stage 1: Some kidney damage [...] body mass. Additional eGFR calculator available at: http://www.[employer].SpaBooker/multiple_crcl_2012.htm Glucose [Mass/Vol]109 mg/dFKtge65 - 99 mg/dLThe [facility], ALPotassium [Moles/Vol]4.1 mmol/L3.7 - 5.3 mmol/[facility], KYProtein [Mass/Vol]7.6 g/dL6.4 - 8.3 g/dLMercy Health- [place], KYSodium [Moles/Vol]137 mmol/L135 - 144 mmol/LMercy Health- [place], KYUrea nitrogen [Mass/Vol]17 mg/dL6 - 20 mg/dLMercy Health- [place], KYOtheron 98-09-6827Ibiaxbhvunb Screen, UrNegativeNEGATIVEMercy Health- [place], KYBarbiturate Screen, UrNegativeNEGATIVEMercy [...] mg/dLLow0.3 - 1.2 mg/dLMercy Health- [place], KYBun/Cre Ekxhn60Lyusm Health- [place], KYGFR >60>60 mL/minMercy Health- [place], KYGFR Non->60>60 mL/minMercy Health- [place], KYInterpretation and review of laboratory resultsAbnormalMercy Health- [place], KYSalicylate Lvl<1Low3 - 10 mg/dLProtestant Deaconess Hospital- [place], KYEthanol percent <0.010<0.010 %[facility], KYDifferential TypeNOT REPORTEDSelect Medical [facility] [place], KYErythrocyte distribution width (RBC) [Ratio]12.3 %11.8 - 14.4 %[facility] [place], KYImmature granulocytes (Bld) [#/Vol]0 %0[facility]- [place], KYImmature granulocytes (Bld) [#/Vol]10*3/uLSelect Medical Specialty Hospital - [facility], KYInterpretation and review of laboratory resultsAbnormalSelect Medical Specialty Hospital [facility], KYMCHC (RBC) [Mass/Vol]34.3 g/dL 28.4 - 34.8 g/dLSelect Medical Specialty Hospital - [facility], KYPlatelet mean volume (Bld) [Entitic vol]8.9 fL8.1 - 13.5 fLThe [facility], KYSegmented neutrophils/100 WBC (Bld)62 %36 - 65 %[facility], KYSegs Absolute3.56[facility] [place], KYSalicylateon 98-30-2953Qxxfymyztq<5Keq1-31BzbocScci Hospital LimaComment on above:Performed By: #### CATHY, CP, SALI #### [facility] [address] [place] [address] Manufacturing Engineer Supervisor: Jose L Gold MD Vital Signs Date TimeVital SignValuePerforming HsmghurwzLjfxzrwm03-46-3678 08:29-0400BP Gdyfzrrxf77 mm[Hg][facility], EM60-86-4464 08:29-0400BP Mprskduu115 mm[Hg][facility], YG93-77-5248 08:29-0400Pulse (Heart Rate)71 /minDouglbee [facility], RI21-73-2694 08:00-0400Body Vbcldarzuul77.2 [degF][facility], DO81-52-1095 08:00-0400Pulse Wstscrjd37 %[facility], WS53-48-8618 08:00-0400Respiratory Rate 16 /minDouglbee [facility], W[place]30-93-9581 02:13-0400BMI (Body Mass Index) 35.96 kg/l0Dyhltfy [facility], KB12-81-5481 02:13-0400Body wubcxm012.45 kgDoUniversity Hospitals [facility], SR80-09-5609 02:13-5742Nmqayl137.3 cmDougmartin John [facility], JL04-74-9115 21:03-0400BMI (Body Mass Index)34.44 kg/m2Syed [facility], CT20-51-3999 21:03-0400Body ohglmk292.86 kgSyed [facility], LP67-00-5777 21:03-0400BP Bwhmbybxu97 mm[Hg][facility], LC04-71-5580 21:03-0400BP Hgthlivh726 mm[Hg][facility], AU65-00-5109 21:03-6159Isjepq652.8 cmSyed [facility], ON82-24-9097 21:03-0400Pulse (Heart Rate)81 /minSyed [facility], [place] 08-17-2019 21:03-0400Pulse Zlaxrluw72 %[facility], [place] 08-17-2019 21:03-0400Respiratory Rate16 /minSyed [facility], [place] 08-17-2019 17:30-0400Body Xunsmwbtgmf99.29 [degF][facility], [place] Encounters Encounter DateEncounter TypeCare ProviderFacilityStart: 04-01-8832ngomyetpyfUS ELAINE JOHNFacility:Q0Zuqft: 68-04-9373Kujqefija for general adult medical examination without abnormal findingsDR ELAINE EdouardMiami Valley Hospitaltart: 01-24-2022 End: 62-49-4254cejxitxjitQI ELAINE Johnsoncility:Z1Ophhl: 01-24-2022 End: 07-50-2497Fqocnxjje for general adult medical examination without abnormal findingsDR ELAINE Johnsoncility:Y9Fnoja: 24-96-1879Shadmjj encounter procedure Elaine Dhruv [facility] KYStart: 08-18-2019 End: 89-33-7049Wunwtjtyph and management of inpatientIRFAN Mitchveronika [facility] Hospitaltart: 08-17-2019 End: 23-17-7892Iskfgfxwy department patient visitDOUGMARTIN Casiano [facility] Hospitaltart: 08-17-2019 End: 40-57-5545Dkuxcyhiz department patient visitSyed Gregg Dominguez Work Phone: [facility] EDComment on above:Suicidal ideation (Primary Dx)Start: 57-18-2929Liiemad encounter procedureDojerrod ErendiraLEEANNA Admitting Procedures DateProcedureProcedure DetailPerforming ClinicianStart: 06-55-0926QHD screening DR ELAINE JULIENomment on above:Performed By: #### PSASC #### [facility] [address] [place] [address] Dr. Levy ChangStart: 97-44-2798SQMUKMYEY PATIENTIRFAN AHMEDStart: 08-19-2019 PATIENT MONITORING CLOSE Q 15 MINUTESIRFAN AHMEDStart: 13-99-9494ABYSMTU COMMUNICATIONIRFAN AHMEDStart: 80-39-0615LNHO GENERALIRFAN AHMEDStart: 77-92-5973MUYK CODEIRFAN AHMEDStart: 01-97-0273SDMVFRPFFDGT AHMEDStart: 88-15-2226AEWPVDB COMMUNICATIONIRFAN AHMEDStart: 54-08-1425FSODVAG STATUS (FROM ED OR OR/PROCEDURAL)IRFAN AHMEDStart: 07-15-5582PPFYK SIGNSIRFAN AHMEDStart: 87-91-9051Pupu screen class list aDOUGLAS HOYStart: 73-99-2400Ajq routine ecg w/least 12 lds w/i&rDOUGLAS HOYStart: 04-75-3797XIRFQNZ PRECAUTIONSDOUGLAS GEMMA Start: 52-67-0814Blni screen class list aEdelon Schroeder Work Phone: Start: 79-49-7180Hkz routine ecg w/least 12 lds i&r onlyEtan E Eitches Work Phone: Start: 65-46-8066Pfo routine ecg w/least 12 lds w/i&r Jovan E Eitches Work Phone: Start: 15-25-3713ZTQ REPORTHpf ScanningStart: 23-42-2570Dpzpc of acetaminophenEtan E Eitches Work Phone: Start: 94-58-5368Rudnv of ethanolEtan E Eitches Work Phone: Start: 19-94-2530Oydej of salicylateEtan E Eitches Work Phone: Start: 36-56-5522Lguns count complete auto&auto difrntl wbcEtan E Eitches Work Phone: Start: 23-00-8015Mhftdipprfwwh metabolic panelEtan E Alexandre Work Phone: Plan of Treatment DateCare ActivityDetailAuthorStart: 21-61-3157Pqgkdqmlq vaccinationFlu vaccine (Season Ended)[facility] 12 LeadEKG 12 Lead ECG STAT 08/17/2019 6:23 PM [place] [facility] DatePayer CategoryPayerPolicy [id number] [facility] [place] PPO xxxxxxxxxxxx 2014-Present [address] [place], [place] [address]etsdkackjgni .[id number]-[id number] [id number] Social History DateTypeDetailFacilityStart: 64-01-2262Xjqkmtz smoking status NHISCurrent every day smokerThe [facility], ALHistory of tobacco useCigarette SmokerThe [facility], ALSex Assigned At BirthNot on fileThe [facility], ALExposure to SARS-CoV-2 (event)Unable to assessThe [facility], KYStart: 62-44-2758Sbpvzzm smoking status NHISFormer smokerThe [facility], ALStart: 67-78-9711Hvveiic intakeCurrent drinker of alcohol (finding)[facility], ALStart: 08-18-2019 Alcohol Commentnightly for past 2 weeksThe [facility], [place] Assessments Diagnosis Suicidal ideation Advance Directives No [...] section and content) DATE CREATED AUTHOR 08/17/2019 [facility] DATE CREATED AUTHOR AUTHOR'S ORGANIZ ATION 09/07/2019 [facility] DATE CREATED AUTHOR AUTHOR'S ORGANIZ ATION 02/17/2022 [facility] FOR RECORDS PERTAINING TO PATIENTS WHO ARE [...] BE BASED ON THE PRIMARY CLINICAL RECORDS. [facility] [employer] [facility]. provides no warranty or guarantee of the accuracy or completeness of information in this document.
== END 2025-02-23 15:53 | disposition home or self-care (01) ==
LOC: LAB 15:53
PROVIDERS: PCP Family Medicine; Visit Provider Family Medicine
DX: E29.1 Testicular hypofunction (principal)
CPT/HCPCS: 36415; 84403